=== PATIENT | male | born 1945 | race Caucasian/White ===

== ENCOUNTER 2022-03-13 10:08 | Inpatient (IN) ==
--- NOTE | 2022-03-13 10:58 | Emergency Department Note ---
HPI General Chief complaint: Weakness Stated complaint: General Weakness Time Seen by Provider: 03/13/22 10:13 Source: EMS Mode of arrival: EMS Limitations: no limitations History of Present Illness HPI Narrative: Narrative: Patient is a 76-year-old male with a complex medical history who presents to the emergency department due to generalized weakness. Patient's reports that the patient has had weakness for "a while." She is unsure exactly how long, but states that seems to be everywhere. She states that he has been in physical therapy for this reason. He then fell on 03/12/2022 and was evaluated at around 2 AM per patient's . She states that they did x-rays that looked good, so they were discharged, but they continue to be concerned. She states that they googled his symptoms and were concerned about the possibility of a TIA. Patient at this time denies any changes in vision/hearing/speech, numbness/tingling/weakness, or facial droop. Patient's does endorse frequent urination. She states that he has chronic runny nose and cough, but these seem to be slightly better at this time. She denies any other concerns at this time. Related Data Home Medications Medication Instructions Recorded Confirmed metoprolol succinate 50 mg 100 mg PO QPM 02/20/21 03/13/22 tablet,extended release 24 hr cyanocobalamin (vitamin B-12) 1,000 mcg IM Q2W 03/04/21 03/13/22 1,000 mcg/mL injection solution finasteride 5 mg tablet 5 mg PO QDAY 03/12/21 03/13/22 GO-out daily maintenance 1 tab PO QDAY PRN Pain 06/12/21 03/13/22 acetaminophen 500 mg capsule 500 mg PO Q6H PRN Pain 06/12/21 03/13/22 loperamide 2 mg capsule (Imodium 2 mg PO Q6H PRN Diarrhea 06/12/21 03/13/22 A-D) phenylephrine 5 See Rx Instructions .Route .COMPLEX 06/12/21 03/13/22 mg-dextromethorphan 10 mg-acetaminophen 325 mg capsule (Vicks DayQuil Cold and Flu Relief) tamsulosin 0.4 mg capsule 0.4 mg PO BID 06/12/21 03/13/22 valacyclovir 1 gram tablet 1,000 mg PO QDAY 06/12/21 03/04/22 ashpatdha root extract 1 cap PO DAILY 12/16/21 03/13/22 warfarin 3 mg tablet 3 mg PO .COMPLEX 01/30/22 03/13/22 insulin glargine 100 unit/mL (3 35 unit subcut QPM diabetic 03/13/22 03/13/22 mL) subcutaneous pen (Basaglar KwikPen U-100 Insulin) Previous Rx's Medication Instructions Recorded blood-glucose meter #1 ea 07/20/19 albuterol sulfate 90 mcg/actuation 2 puff inhalation Q6H PRN 02/23/20 aerosol inhaler (Ventolin HFA) shortness of breath or wheezing #8.5 grams blood sugar diagnostic (Blood #100 ea 04/23/20 Glucose Test strips) cholecalciferol (vitamin D3) 125 125 mcg PO QDAY #30 caps 03/14/21 mcg (5,000 unit) capsule lipase 3,000-protease 1 cap PO BID #60 caps 05/21/21 9,500-amylase 15,000 unit capsule, delayed rel (Creon) Lactobac no.2-Bifidobac no.1-S. 1 cap PO QDAY #30 caps 07/22/21 thermo 112.5 billion cell capsule (VSL#3) empagliflozin 10 mg tablet 10 mg PO QAM #90 tabs 09/05/21 (Jardiance) levothyroxine 125 mcg tablet 125 mcg PO QDAY #90 tabs 01/13/22 gabapentin 300 mg capsule 300 mg PO BID #180 caps 02/10/22 clonazepam 0.5 mg tablet 0.5 mg PO QDAY PRN anxiety #30 tabs 02/14/22 bupropion HCl 300 mg 24 hr tablet, 300 mg PO QAM #30 tabs 03/13/22 extended release (Wellbutrin XL) mirtazapine 30 mg tablet (Remeron) 30 mg PO QHS #30 tabs 03/13/22 ibuprofen 600 mg tablet 600 mg PO QIDP PRN Pain/Fever > 03/17/22 101 #30 tabs lidocaine 5 % topical patch 1 patch topical DAILY@1000 #10 ea 03/17/22 tramadol 50 mg tablet 50 mg PO QID #20 tabs 03/17/22 Allergies Allergy/AdvReac Type Severity Reaction Status Date / Time hydrocodone AdvReac Mild itching Verified 03/13/22 10:14 oxycodone AdvReac Mild Itching Verified 03/13/22 10:14 Review of Systems ROS ROS Narrative: Narrative: Constitutional: Reports weakness (Generalized); Denies fever Eyes: Denies eye pain or vision change ENT ED: Reports rhinorrhea; Denies throat pain or hearing loss Cardiovascular: Denies chest pain, dyspnea on exertion, orthopnea or edema Respiratory: Reports cough; Denies shortness of breath Gastrointestinal: Reports constipation; Denies abdominal pain, nausea, vomiting, diarrhea, hematochezia or melena Genitourinary: Reports frequency; Denies dysuria, hematuria or incontinence Musculoskeletal: Reports other (Left femur, ankle, and foot pain); Denies back pain or myalgia Integumentary: Denies rash or lesions Neurological: Reports weakness (Generalized); Denies headache, numbness, confusion, abnormal gait or dizziness Endocrine: Reports polyuria; Denies fatigue Hematological/Lymphatic: Denies easy bleeding or easy bruising PFSH Narrative Patient History Narrative: Narrative: Medical/Surgical/Family History All Active Problems (Updated 03/19/22 @ 07:03 by Wesley Melton MD) Hypocalcemia (Acute) General weakness (Acute) T2DM (type 2 diabetes mellitus) (Acute) Overweight (BMI 25.0-29.9) (Chronic) Diabetes mellitus type 2, uncontrolled (Chronic) Hypothyroidism, acquired (Chronic) Anxiety, generalized (Chronic) Depression, major, recurrent (Chronic) Chest pain (Chronic) A-fib (Chronic) Dyspnea (Chronic) Fatigue (Chronic) Benign prostatic hyperplasia with lower urinary tract symptoms (Chronic) Graves disease (Chronic) Polio (Chronic) Irregular heart rhythm (Chronic) Chronic kidney disease (Chronic) Irritable bowel syndrome (Chronic) COLEEN (obstructive sleep apnea) (Chronic) Uses continuous positive airway pressure (CPAP) ventilation at home (Chronic) Flu vaccine need (Chronic) Urinary frequency (Chronic) Urinary urgency (Chronic) Hernia (Chronic) Palpitations (Chronic) Back pain (Chronic) Skin tear (Chronic) Laceration (Chronic) Open wound (Chronic) Ventral hernia without obstruction or gangrene (Chronic) Medicare annual wellness visit, initial (Chronic) Arthritis of left wrist (Chronic) Spinal stenosis, lumbar region with neurogenic claudication (Chronic) Bilateral leg pain (Chronic) History of cataract extraction (Chronic) Weakness (Chronic) Blurred vision (Chronic) Nasal discharge (Chronic) Ringing in ear (Chronic) Joint pain (Chronic) Muscle weakness (Chronic) Muscle pain (Chronic) Dry skin (Chronic) Itchy skin (Chronic) Mood changes (Chronic) Thyroid trouble (Chronic) Reaction to food (Chronic) Gout (Chronic) Skin yeast infection (Chronic) Obesity (Chronic) Metabolic syndrome (Chronic) Hypothyroidism (Chronic) GERD (gastroesophageal reflux disease) (Chronic) Depression (Chronic) Radiculopathy, lumbar region (Chronic) Shingles outbreak (Chronic) Yeast infection of the skin (Chronic) Long-term (current) use of anticoagulants (Chronic) Gout (Chronic) Diarrhea (Chronic) Skin tear (Chronic) Skin tear of left hand without complication (Chronic) Concussion (Chronic) Cellulitis (Chronic) Bilateral knee pain (Chronic) TMJ (temporomandibular joint disorder) (Chronic) Foot pain, right (Chronic) Suicidal ideation (Chronic) Depression (Chronic) Hospital discharge follow-up (Chronic) Hyperglycemia (Chronic) On waiter and cashier drug therapy (Chronic) Vitamin D deficiency (Chronic) Major depression in partial remission (Chronic) Diabetes mellitus (Chronic) Major depression, recurrent, chronic (Chronic) Generalized anxiety disorder (Chronic) Atrial fibrillation (Chronic) Suicidal ideation (Chronic) Diabetic neuropathy (Chronic) Insomnia (Chronic) Irritable bowel syndrome (Chronic) Abdominal mass (Chronic) Abdominal pain (Chronic) UTI (urinary tract infection) (Chronic) BPH (benign prostatic hyperplasia) (Chronic) Other chronic cystitis without hematuria (Chronic) Thyrotoxicosis (Chronic) Unspecified abnormalities of heart beat (Chronic) Osteoarthritis (Chronic) Left renal stone (Chronic) Chronic renal insufficiency, stage III (moderate) (Chronic) CKD stage G3a/A2, GFR 45-59 and albumin creatinine ratio 30-299 mg/g (Acute) Head injury (Acute) Vitamin B12 deficiency without anemia (Acute) Cellulitis of left foot (Acute) Low back pain (Acute) Low libido (Acute) On chcf drug therapy (Acute) Diabetes mellitus (Acute) Low libido (Acute) Hypothyroidism (Acute) Head injury (Acute) Blood in stool (Acute) TIN (tubulointerstitial nephritis) (Acute) Foreign body sensation in throat (Acute) Esophageal dysmotility (Acute) Difficulty swallowing (Acute) Bradycardia (Acute) Bradycardia (Acute) Cough (Acute) Bilateral leg weakness (Acute) CAP (community acquired pneumonia) (Acute) Fall (Acute) Knee pain, bilateral (Acute) Lower back pain (Acute) Falls frequently (Acute) DJD (degenerative joint disease) (Acute) Chondrocalcinosis (Acute) DJD (degenerative joint disease), lumbar (Acute) Chronic knee pain (Acute) Medical History A-fib Anxiety, generalized Arthritis of wrist, left, degenerative Back pain Benign prostatic hyperplasia with lower urinary tract symptoms Bilateral knee pain Bilateral leg pain Bilateral leg weakness Blood in stool Blurred vision BPH (benign prostatic hyperplasia) Bradycardia CAP (community acquired pneumonia) Cellulitis Chronic kidney disease Chronic renal insufficiency, stage III (moderate) Depression Depression Depression, major, recurrent Diabetes mellitus type 2, uncontrolled Diabetic neuropathy Diarrhea Difficulty swallowing Dry skin Dyspnea Fatigue Foot pain, right GERD (gastroesophageal reflux disease) Gout Gout Graves disease 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, eyes and legs Hernia Hospital discharge follow-up Hypothyroidism Hypothyroidism, acquired Irregular heart rhythm Irritable bowel syndrome Itchy skin Joint pain Left renal stone Low back pain Metabolic syndrome Mood changes Muscle pain Muscle weakness Nasal discharge Obesity COLEEN (obstructive sleep apnea) Osteoarthritis Other chronic cystitis without hematuria Overweight (BMI 25.0-29.9) Palpitations Polio Radiculopathy, lumbar region Reaction to food Ringing in ear Shingles outbreak Sleep disorder Spinal stenosis, lumbar region with neurogenic claudication Suicidal ideation Thyroid trouble Thyrotoxicosis TMJ (temporomandibular joint disorder) Unspecified abnormalities of heart beat Urinary frequency Urinary urgency Uses continuous positive airway pressure (CPAP) ventilation at home UTI (urinary tract infection) Ventral hernia without obstruction or gangrene Weakness Yeast infection of the skin Surgical History History of Achilles tendon repair Left foot History of cataract extraction History of colonoscopy History of left inguinal hernia repair History of left knee replacement History of partial colectomy ~2000 History of surgery on wrist Left History of thumb surgery Left History of total right knee replacement (TKR) Family History Grandmother Breast cancer Maternal Father Alcoholism Mother Colon cancer Stage 3 Alcoholism Diabetes Daughter Hypothyroidism Sleep apnea Son Sleep apnea Diabetes Hypothyroidism Family/Other Family history of anxiety disorder Family history of depression Family history of drug abuse Social History Smoking Status: Never smoker Alcohol Intake Frequency: a few times a week Substance Use: does not use Exam Narrative Narrative: Narrative: General Limitations: no limitations General appearance: Present alert and in no apparent distress; Absent anxious, appears intoxicated or sleepy Head Head: Present atraumatic and normocephalic Eye Eye: Present PERRL and EOMI; Absent scleral icterus or nystagmus ENT ENT: Present mucous membranes moist; Absent nasal congestion Neck Neck: Present full ROM; Absent tenderness Chest Chest: Present normal inspection and symmetric chest wall rise; Absent tenderness Respiratory Respiratory: Present normal lung sounds bilaterally; Absent respiratory distress or accessory muscle use Cardiovascular Cardiovascular: Present regular rate, normal rhythm and normal heart sounds Adbominal Abdominal: Present soft and normal bowel sounds; Absent distention or tenderness Extremities Extremities: Present normal inspection, full ROM and tenderness (Left femur, ankle, and foot) Back Back: Present normal inspection and full ROM; Absent tenderness Neurological Neurological: Present alert, oriented X3, CN II-XII intact and reflexes normal; Absent motor sensory deficit Psychiatric Psychiatric: Present normal affect and normal mood Skin Skin: Present warm (WNL), dry and normal color Course Vital Signs Vital signs: Vital Signs Temperature 97.0 F 03/13/22 10:15 Pulse Rate 85 03/13/22 10:15 Respiratory Rate 20 03/13/22 10:15 Blood Pressure 151/83 03/13/22 10:15 Pulse Oximetry (%) 97 03/13/22 10:15 Oxygen Delivery Method 03/13/22 10:15 Temperature 98.8 F 03/17/22 13:10 Pulse Rate 85 03/17/22 13:10 Respiratory Rate 20 03/17/22 13:10 Blood Pressure 137/72 03/17/22 13:10 Pulse Oximetry (%) 95 03/17/22 13:10 Oxygen Delivery Method 03/17/22 13:10 [facility] MDM Narrative Medical decision making narrative: Narrative: Patient is a 76-year-old male who presents to the emergency department due to generalized weakness. Differential diagnoses include UTI, electrolyte abnormality, anemia, viral infection, hypoglycemia, and other infection. I Patient's COVID and influenza swabs are negative. Patient's labs are significant for a ionized calcium of 0.75 and urine with blood and protein. Given patient's symptoms, very low calcium, and family concerning spoken to hospitalist was agreed to see and evaluate patient for admission. Lab Data Result diagrams: 03/14/22 06:00 03/16/22 05:18 Labs: Lab Results 03/13/22 03/13/22 03/13/22 Range/Units 11:05 11:05 11:05 WBC 9.0 (4.5-11.0) K/mcL RBC 5.74 (4.63-6.08) M/mcL Hgb 17.5 (13.7-17.5) g/dL Hct 53.6 H (40.1-51.0) % POC Hct (41-55) MCV 93.4 (80.0-100.0) fL MCH 30.5 (26.0-34.0) pg MCHC 32.6 (31.0-36.0) g/dL RDW 12.9 (11.5-14.5) % Plt Count 138 L (140-440) K/mcL MPV 9.1 (8.8-12.5) fL Immature Gran % (Auto) 0.3 (0.0-0.5) % Neut % (Auto) 72.3 (38.0-78.0) % Lymph % (Auto) 12.2 L (15.5-49.0) % Catron % (Auto) 14.1 H (1.0-12.0) % Eos % (Auto) 0.9 (0.0-7.0) % Baso % (Auto) 0.2 (0.0-2.0) % Lymph # (Auto) 1.09 L (1.50-4.80) K/mcL [place] # (Auto) 1.26 H (0.10-0.90) K/mcL Eos # (Auto) 0.08 (0.00-0.70) K/mcL Baso # (Auto) 0.02 (0.00-0.30) K/mcL Immature Gran # 0.03 (0.00-0.05) K/mcl Absolute Neutrophils 6.48 (1.80-8.00) K/mcL PT (11.9-14.5) sec INR (0.9-1.1) POC Sodium (133-145) Sodium (133-145) mmol/L POC Potassium (3.3-5.1) Potassium (3.3-5.1) mmol/L POC Chloride (96-108) Chloride (96-108) mmol/L Carbon Dioxide (22-30) mmol/L POC Total CO2 (22-30) Anion Gap (8.0-16.0) POC BUN (6-20) BUN (8-23) mg/dL Creatinine (0.7-1.2) mg/dL POC Creatinine (0.6-1.2) GFR Calculation Glucose (70-105) mg/dL POC Glucose (70-105) Hemoglobin A1c (4.0-6.0) % Hgb Estim Average Glucose mg/dL Calcium (8.6-10.4) mg/dL POC WB Ioniz Calcium (1.16-1.32) Magnesium 1.7 (1.6-2.5) mg/dL Total Bilirubin 1.3 H (0.1-1.0) mg/dL Direct Bilirubin 0.5 H (<0.3) mg/dL AST 24 (<40) U/L ALT 18 (<40) U/L Alkaline Phosphatase 79 (39-117) U/L Total Protein 7.5 (5.9-8.4) gm/dL Albumin 4.1 (3.2-5.2) gm/dL Globulin 3.4 (2.2-3.7) gm/dL Albumin/Globulin Ratio (1.0-2.3) Urine Color Urine Appearance (Clear) Urine pH (5.0-9.0) Ur Specific [place] (1.000-1.035) Urine Protein (Negative) mg/dL Urine Glucose (UA) (Negative) mg/dL Urine Ketones (Negative) mg/dL Urine Occult Blood (Negative) mg/dL Urine Nitrate (Negative) Urine Bilirubin (Negative) mg/dL Urine Urobilinogen mg/dL Ur Leukocyte Esterase (Negative) /uL Urine RBC (0-1) /hpf Urine WBC (0-4) /hpf Ur Squamous Epith Cells (0-4) /hpf Urine Bacteria (0) /hpf Ur Culture Indicated? 03/13/22 03/13/22 03/13/22 Range/Units 11:05 11:05 11:13 WBC (4.5-11.0) K/mcL RBC (4.63-6.08) M/mcL Hgb (13.7-17.5) g/dL Hct (40.1-51.0) % POC Hct 54.0 (41-55) MCV (80.0-100.0) fL MCH (26.0-34.0) pg MCHC (31.0-36.0) g/dL RDW (11.5-14.5) % Plt Count (140-440) K/mcL MPV (8.8-12.5) fL Immature Gran % (Auto) (0.0-0.5) % Neut % (Auto) (38.0-78.0) % Lymph % (Auto) (15.5-49.0) % Catron % (Auto) (1.0-12.0) % Eos % (Auto) (0.0-7.0) % Baso % (Auto) (0.0-2.0) % Lymph # (Auto) (1.50-4.80) K/mcL Catron # (Auto) (0.10-0.90) K/mcL Eos # (Auto) (0.00-0.70) K/mcL Baso # (Auto) (0.00-0.30) K/mcL Immature Gran # (0.00-0.05) K/mcl Absolute Neutrophils (1.80-8.00) K/mcL PT (11.9-14.5) sec INR (0.9-1.1) POC Sodium 139 (133-145) Sodium (133-145) mmol/L POC Potassium 4.4 (3.3-5.1) Potassium (3.3-5.1) mmol/L POC Chloride 103 (96-108) Chloride (96-108) mmol/L Carbon Dioxide (22-30) mmol/L POC Total CO2 29.0 (22-30) Anion Gap (8.0-16.0) POC BUN 24 H (6-20) BUN (8-23) mg/dL Creatinine (0.7-1.2) mg/dL POC Creatinine 1.5 H (0.6-1.2) GFR Calculation Glucose (70-105) mg/dL POC Glucose 135 H (70-105) Hemoglobin A1c 8.4 H (4.0-6.0) % Hgb Estim Average Glucose 194 mg/dL Calcium 10.0 (8.6-10.4) mg/dL POC WB Ioniz Calcium 0.75 L (1.16-1.32) Magnesium (1.6-2.5) mg/dL Total Bilirubin (0.1-1.0) mg/dL Direct Bilirubin (<0.3) mg/dL AST (<40) U/L ALT (<40) U/L Alkaline Phosphatase (39-117) U/L Total Protein (5.9-8.4) gm/dL Albumin (3.2-5.2) gm/dL Globulin (2.2-3.7) gm/dL Albumin/Globulin Ratio (1.0-2.3) Urine Color Urine Appearance (Clear) Urine pH (5.0-9.0) Ur Specific [place] (1.000-1.035) Urine Protein (Negative) mg/dL Urine Glucose (UA) (Negative) mg/dL Urine Ketones (Negative) mg/dL Urine Occult Blood (Negative) mg/dL Urine Nitrate (Negative) Urine Bilirubin (Negative) mg/dL Urine Urobilinogen mg/dL Ur Leukocyte Esterase (Negative) /uL Urine RBC (0-1) /hpf Urine WBC (0-4) /hpf Ur Squamous Epith Cells (0-4) /hpf Urine Bacteria (0) /hpf Ur Culture Indicated? 03/13/22 03/14/22 03/14/22 Range/Units 13:45 06:00 06:00 WBC 9.5 (4.5-11.0) K/mcL RBC 5.03 (4.63-6.08) M/mcL Hgb 15.6 (13.7-17.5) g/dL Hct 46.8 (40.1-51.0) % POC Hct (41-55) MCV 93.0 (80.0-100.0) fL MCH 31.0 (26.0-34.0) pg MCHC 33.3 (31.0-36.0) g/dL RDW 12.7 (11.5-14.5) % Plt Count 135 L (140-440) K/mcL MPV 9.9 (8.8-12.5) fL Immature Gran % (Auto) 0.3 (0.0-0.5) % Neut % (Auto) 67.2 (38.0-78.0) % Lymph % (Auto) 14.9 L (15.5-49.0) % Catron % (Auto) 16.5 H (1.0-12.0) % Eos % (Auto) 0.8 (0.0-7.0) % Baso % (Auto) 0.3 (0.0-2.0) % Lymph # (Auto) 1.42 L (1.50-4.80) K/mcL Catron # (Auto) 1.57 H (0.10-0.90) K/mcL Eos # (Auto) 0.08 (0.00-0.70) K/mcL Baso # (Auto) 0.03 (0.00-0.30) K/mcL Immature Gran # 0.03 (0.00-0.05) K/mcl Absolute Neutrophils 6.39 (1.80-8.00) K/mcL PT 20.8 H (11.9-14.5) sec INR 1.7 H (0.9-1.1) POC Sodium (133-145) Sodium (133-145) mmol/L POC Potassium (3.3-5.1) Potassium (3.3-5.1) mmol/L POC Chloride (96-108) Chloride (96-108) mmol/L Carbon Dioxide (22-30) mmol/L POC Total CO2 (22-30) Anion Gap (8.0-16.0) POC BUN (6-20) BUN (8-23) mg/dL Creatinine (0.7-1.2) mg/dL POC Creatinine (0.6-1.2) GFR Calculation Glucose (70-105) mg/dL POC Glucose (70-105) Hemoglobin A1c (4.0-6.0) % Hgb Estim Average Glucose mg/dL Calcium (8.6-10.4) mg/dL POC WB Ioniz Calcium (1.16-1.32) Magnesium (1.6-2.5) mg/dL Total Bilirubin (0.1-1.0) mg/dL Direct Bilirubin (<0.3) mg/dL AST (<40) U/L ALT (<40) U/L Alkaline Phosphatase (39-117) U/L Total Protein (5.9-8.4) gm/dL Albumin (3.2-5.2) gm/dL Globulin (2.2-3.7) gm/dL Albumin/Globulin Ratio (1.0-2.3) Urine Color Yellow Urine Appearance Clear (Clear) Urine pH 5.0 (5.0-9.0) Ur Specific [place] 1.025 (1.000-1.035) Urine Protein 100 A (Negative) mg/dL Urine Glucose (UA) >=500 A (Negative) mg/dL Urine Ketones 20 A (Negative) mg/dL Urine Occult Blood >=1.0 A (Negative) mg/dL Urine Nitrate Negative (Negative) Urine Bilirubin Negative (Negative) mg/dL Urine Urobilinogen Negative mg/dL Ur Leukocyte Esterase Negative (Negative) /uL Urine RBC > 182 H (0-1) /hpf Urine WBC 4 (0-4) /hpf Ur Squamous Epith Cells < 1 (0-4) /hpf Urine Bacteria None (0) /hpf Ur Culture Indicated? No 03/14/22 Range/Units 06:00 WBC (4.5-11.0) K/mcL RBC (4.63-6.08) M/mcL Hgb (13.7-17.5) g/dL Hct (40.1-51.0) % POC Hct (41-55) MCV (80.0-100.0) fL MCH (26.0-34.0) pg MCHC (31.0-36.0) g/dL RDW (11.5-14.5) % Plt Count (140-440) K/mcL MPV (8.8-12.5) fL Immature Gran % (Auto) (0.0-0.5) % Neut % (Auto) (38.0-78.0) % Lymph % (Auto) (15.5-49.0) % Catron % (Auto) (1.0-12.0) % Eos % (Auto) (0.0-7.0) % Baso % (Auto) (0.0-2.0) % Lymph # (Auto) (1.50-4.80) K/mcL [place] # (Auto) (0.10-0.90) K/mcL Eos # (Auto) (0.00-0.70) K/mcL Baso # (Auto) (0.00-0.30) K/mcL Immature Gran # (0.00-0.05) K/mcl Absolute Neutrophils (1.80-8.00) K/mcL PT (11.9-14.5) sec INR (0.9-1.1) POC Sodium (133-145) Sodium 133 (133-145) mmol/L POC Potassium (3.3-5.1) Potassium 3.9 (3.3-5.1) mmol/L POC Chloride (96-108) Chloride 100 (96-108) mmol/L Carbon Dioxide 23 (22-30) mmol/L POC Total CO2 (22-30) Anion Gap 10.0 (8.0-16.0) POC BUN (6-20) BUN 22 (8-23) mg/dL Creatinine 1.4 H (0.7-1.2) mg/dL POC Creatinine (0.6-1.2) GFR Calculation 48 Glucose 186 H (70-105) mg/dL POC Glucose (70-105) Hemoglobin A1c (4.0-6.0) % Hgb Estim Average Glucose mg/dL Calcium 9.0 (8.6-10.4) mg/dL POC WB Ioniz Calcium (1.16-1.32) Magnesium (1.6-2.5) mg/dL Total Bilirubin 1.2 H (0.1-1.0) mg/dL Direct Bilirubin (<0.3) mg/dL AST 32 (<40) U/L ALT 20 (<40) U/L Alkaline Phosphatase 79 (39-117) U/L Total Protein 6.3 (5.9-8.4) gm/dL Albumin 3.3 (3.2-5.2) gm/dL Globulin 3.0 (2.2-3.7) gm/dL Albumin/Globulin Ratio 1.1 (1.0-2.3) Urine Color Urine Appearance (Clear) Urine pH (5.0-9.0) Ur Specific [place] (1.000-1.035) Urine Protein (Negative) mg/dL Urine Glucose (UA) (Negative) mg/dL Urine Ketones (Negative) mg/dL Urine Occult Blood (Negative) mg/dL Urine Nitrate (Negative) Urine Bilirubin (Negative) mg/dL Urine Urobilinogen mg/dL Ur Leukocyte Esterase (Negative) /uL Urine RBC (0-1) /hpf Urine WBC (0-4) /hpf Ur Squamous Epith Cells (0-4) /hpf Urine Bacteria (0) /hpf Ur Culture Indicated? ED POC Tests ED POC Tests: JOYCE - Influenza A Negative JOYCE - Influenza B Negative JOYCE - SARS Antigen Negative EKG Data EKG #1: EKG attestation: Yes I reviewed and interpreted this EKG. EKG results narrative: Normal sinus rhythm with a rate of 93, left axis deviation, UT of 238, QRS of 140, QTc of 471, absence of ST elevation or depression, right bundle branch block pattern. Discharge Plan Patient/Caregiver Discharge Instructions Pt seen by SCULPTURE INSTRUCTOR/PA only: No Clinical Impression: Hypocalcemia Patient Disposition: Xfer As Inpt ([facility]) Discharge Date/Time: 03/13/22 20:08 Discharge Comment: to room 112 @2005
[2022-03-13 11:17] LABS: POC Calcium, Ionized 0.75 (1.16-1.32); POC Creatinine 1.5 (0.6-1.2); POC Potassium 4.4 (3.3-5.1)
[2022-03-13] MEDS ORDERED: CALCIUM GLUCONATE 4.65 MEQ in DEXTROSE 5% IN WATER 50 ML IV ONE (11:20)
[2022-03-13 11:49] LABS: Basophils # (Auto) 0.02 K/mcL (0.00-0.30); Basophils % (Auto) 0.2 % (0.0-2.0); Eosinophils # (Auto) 0.08 K/mcL (0.00-0.70); Eosinophils % (Auto) 0.9 % (0.0-7.0); Hematocrit 53.6 % (40.1-51.0); Hemoglobin 17.5 g/dL (13.7-17.5); Lymphocytes # (Auto) 1.09 K/mcL (1.50-4.80); Lymphocytes % (Auto) 12.2 % (15.5-49.0); Mean Cell Volume 93.4 fL (80.0-100.0); Mean Corpuscular HGB Conc 32.6 g/dL (31.0-36.0); Mean Platelet Volume 9.1 fL (8.8-12.5); Monocytes # (Auto) 1.26 K/mcL (0.10-0.90); Monocytes % (Auto) 14.1 % (1.0-12.0); Neutrophils % (Auto) 72.3 % (38.0-78.0); Platelet Count 138 K/mcL (140-440); RBC 5.74 M/mcL (4.63-6.08); Red Cell Distribution Width 12.9 % (11.5-14.5)
--- NOTE | 2022-03-13 12:08 | XRay Report ---
INDICATION: cough TECHNIQUE: AP portable upright chest x-ray COMPARISON: Previous chest x-rays dated 03/03/2022, 12/11/2021 FINDINGS: Lungs:Mild bibasilar infiltrate may be secondary to atelectasis. Pneumonia is not excluded. Clinical correlation follow-up radiographs recommended. Mid and upper lungs are negative Heart, vascular:No significant cardiomegaly. Pulmonary vascularity is normal. No pulmonary edema or pulmonary congestion Mediastinum, chucho:No mediastinal widening. No hilar mass Pleura:No pleural fluid. No pleural-based mass or calcification Skeletal:Negative. IMPRESSION: 1. Probable bibasilar atelectasis. Pneumonia is not excluded 2. Otherwise negative Interpreted and Authenticated by: Mejia Savage 03/13/22
--- NOTE | 2022-03-13 12:09 | XRay Report ---
INDICATION: Fall, foot/ankle pain/tenderness TECHNIQUE: AP, oblique, crosstable lateral left ankle COMPARISON: None FINDINGS: Skeletal: Distal tibia and fibula are negative. No fracture. Talus and calcaneus are normal. No osteochondral lesion of the talus Joint spaces: Tibiotalar joint space is normal. Subtalar joint is normalNo significant tibiotalar joint effusion Periarticular soft tissue: No significant periarticular soft tissue swelling. No soft tissue gas or radiopaque foreign body. There is vascular calcification consistent with diabetes IMPRESSION: No acute abnormality Interpreted and Authenticated by: Mejia Savage 03/13/22
--- NOTE | 2022-03-13 12:10 | XRay Report ---
INDICATION: Pain/tenderness, recent fall TECHNIQUE: AP and crosstable lateral left femur COMPARISON: None. FINDINGS: Previous left total hip arthroplasty. No periprosthetic fracture. Left femur is otherwise negative. Left hip is normal. No soft tissue gas or detectable foreign body IMPRESSION: No acute abnormality Interpreted and Authenticated by: Mejia Savage 03/13/22
--- NOTE | 2022-03-13 12:13 | XRay Report ---
INDICATION: Fall, foot/ankle pain/tenderness TECHNIQUE: AP, oblique, lateral left foot COMPARISON: Previous examination dated 07/16/2021 FINDINGS: There is a subtle linear lucency in the distal aspects of the left first proximal phalanx. This is not considered a definite fracture. This is visualized on AP view although the oblique view is negative Otherwise negative examination. No other fracture or acute abnormality. No soft tissue gas. No detectable foreign body. There are vascular calcifications suggesting diabetes IMPRESSION: No definite acute abnormality Interpreted and Authenticated by: Mejia Savage 03/13/22
[2022-03-13 12:31] LABS: ALT/SGPT 18 U/L (<40); AST/SGOT 24 U/L (<40); Albumin 4.1 gm/dL (3.2-5.2); Alkaline Phosphatase 79 U/L (39-117); Bilirubin,Direct 0.5 mg/dL (<0.3); Bilirubin,Total 1.3 mg/dL (0.1-1.0); Globulin 3.4 gm/dL (2.2-3.7)
[2022-03-13] MEDS ORDERED: 0.9 % SODIUM CHLORIDE 500 ML IV ONE (12:47)
[2022-03-13 15:22] LABS: Appearance,Urine CLEAR (Clear); Bilirubin,Urine Negative (Negative); Color,Urine YELLOW; Culture Indicated,Urine No; Glucose,Urine (UA) >=500 mg/dL (Negative); Ketones,Urine 20 mg/dL (Negative); Leukocyte Esterase,Urine Negative /uL (Negative); Nitrate,Urine Negative (Negative); Protein,Urine 100 mg/dL (Negative); Specific Gravity,Urine 1.025 (1.000-1.035); Urine Blood >=1.0 mg/dL (Negative); Urine RBC > 182 /hpf (0-1); Urine Squamous Epithelial Cell < 1 /hpf (0-4); Urine WBC 4 /hpf (0-4); Urobilinogen,Urine Negative
[2022-03-13] MEDS ORDERED: ceFAZolin 1 GM VIAL IV ONE (16:16)
[2022-03-13] MEDS ORDERED: VANCOMYCIN 2,000 MG in 0.9 % SODIUM CHLORIDE 500 ML IV ONE (16:16)
--- NOTE | 2022-03-13 16:27 | Cat Scan Report ---
INDICATION: AMS COMPARISON: Previous examinations dated 03/03/2022, 08/25/2021, 06/14/2021 TECHNIQUE: Axial noncontrast-enhanced images through the brain. Sagittally and coronally reformatted images. FINDINGS: Cerebral hemispheres:Negative. No intra-axial abnormality. No intra-axial hematoma. No localized mass effect. There is ventriculomegaly, unchanged. No evidence for significant interstitial edema. Normal pressure hydrocephalus is not excluded appropriate clinical circumstances Brainstem and cerebellum:No intra-axial abnormality. There is hypoplasia of the left cerebellar hemisphere or asymmetric roseann cisterna magna Extra-axial:No acute hemorrhage. No subdural or epidural hematoma. No subarachnoid hemorrhage. Basilar cisterns are normal Calvarial:No calvarial fracture. No lytic lesion Temporal bones are negative. No destructive lesions Soft tissue, orbits, sinuses:Orbits and visualized facial soft tissues and paranasal sinuses are negative IMPRESSION: 1. No acute abnormality. No interval change. No intracranial hemorrhage 2. Ventriculomegaly is stable 3. 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 Interpreted and Authenticated by: Mejia Savage 03/13/22
--- NOTE | 2022-03-13 18:18 | Internal Med History&Physical ---
HPI History of Present Illness Patient information: Note initiated : 03/13/22 at 6:15 pm Service Date, if different from initiated Date: [] Patient: Bryan Hanson a 76 y/o M admitted on for General Weakness. Chief Complaint: [General weakness, left knee pain, unable to walk] Chief complaint: General weakness, left knee pain, unable to walk History of present illness: Mr. Hanson is a 76 year old M history of hypothyroidism, BPH, type 2 diabetes mellitus, anxiety with depressions, atrial fibrillation's, generalized osteoarthritis status post left hip and knee replacement, presenting with 4-day history of left knee pain, inability to walk, and general weakness. According to the and daughter at the bedside, at baseline patient was able to walk as much as he would want to but since last Thursday he was not able to walk and essentially bedridden. He is also complaining of left knee and left ankle pain. Extensive x-ray including the entire left lower extremities were performed and no acute joint abnormalities suggest joint dislocations or bone fractures were identified. Chest x-ray unremarkable. CT of the head without contrast also unremarkable and this was no acute intracranial pathologies identified. Ionized calcium level 0.75, but the total calcium level 10.0 within normal range. Admission request was called for placement planning after physical therapy and Occupational Therapy evaluations. Constitutional Constitutional: Present weakness; Absent chills, excessive sweating, fatigue or fever(s) EENT Eyes: Absent blurry vision, change in vision, loss of vision or other visual disturbances Ears: Absent decreased hearing or tinnitus Nose, mouth and throat: Absent abnormal hearing, dry mouth, headache(s), nasal congestion or sore throat Cardiovascular Cardiovascular: Absent chest pain, chest pain at rest, edema, irregular heart rhythm or palpatations Respiratory Respiratory: Absent cough, dyspnea or wheezing Gastrointestinal Gastrointestinal: Absent abdominal pain, constipation, diarrhea, nausea or vomiting Musculoskeletal Musculoskeletal: Present arthralgias; Absent back pain, deformity, limited range of motion, muscle cramps, muscle weakness or numbness Integumentary Integumentary: Absent lesions, rash or wounds Neurological Neurological: Absent focal weakness, headache(s) or numbness Psychiatric Psychiatric: Absent anxiety, depression or hallucinations PFSH PFSH All Active Problems (Updated 03/13/22 @ 18:26 by Chet Jaquez MD) General weakness (Acute) T2DM (type 2 diabetes mellitus) (Acute) Overweight (BMI 25.0-29.9) (Chronic) Diabetes mellitus type 2, uncontrolled (Chronic) Hypothyroidism, acquired (Chronic) Anxiety, generalized (Chronic) Depression, major, recurrent (Chronic) Chest pain (Chronic) A-fib (Chronic) Dyspnea (Chronic) Fatigue (Chronic) Benign prostatic hyperplasia with lower urinary tract symptoms (Chronic) Graves disease (Chronic) Polio (Chronic) Irregular heart rhythm (Chronic) Chronic kidney disease (Chronic) Irritable bowel syndrome (Chronic) COLEEN (obstructive sleep apnea) (Chronic) Uses continuous positive airway pressure (CPAP) ventilation at home (Chronic) Flu vaccine need (Chronic) Urinary frequency (Chronic) Urinary urgency (Chronic) Hernia (Chronic) Palpitations (Chronic) Back pain (Chronic) Skin tear (Chronic) Laceration (Chronic) Open wound (Chronic) Ventral hernia without obstruction or gangrene (Chronic) Medicare annual wellness visit, initial (Chronic) Arthritis of left wrist (Chronic) Spinal stenosis, lumbar region with neurogenic claudication (Chronic) Bilateral leg pain (Chronic) History of cataract extraction (Chronic) Weakness (Chronic) Blurred vision (Chronic) Nasal discharge (Chronic) Ringing in ear (Chronic) Joint pain (Chronic) Muscle weakness (Chronic) Muscle pain (Chronic) Dry skin (Chronic) Itchy skin (Chronic) Mood changes (Chronic) Thyroid trouble (Chronic) Reaction to food (Chronic) Gout (Chronic) Skin yeast infection (Chronic) Obesity (Chronic) Metabolic syndrome (Chronic) Hypothyroidism (Chronic) GERD (gastroesophageal reflux disease) (Chronic) Depression (Chronic) Radiculopathy, lumbar region (Chronic) Shingles outbreak (Chronic) Yeast infection of the skin (Chronic) Long-term (current) use of anticoagulants (Chronic) Gout (Chronic) Diarrhea (Chronic) Skin tear (Chronic) Skin tear of left hand without complication (Chronic) Concussion (Chronic) Cellulitis (Chronic) Bilateral knee pain (Chronic) TMJ (temporomandibular joint disorder) (Chronic) Foot pain, right (Chronic) Suicidal ideation (Chronic) Depression (Chronic) Hospital discharge follow-up (Chronic) Hyperglycemia (Chronic) On terminal block assembler drug therapy (Chronic) Vitamin D deficiency (Chronic) Major depression in partial remission (Chronic) Diabetes mellitus (Chronic) Major depression, recurrent, chronic (Chronic) Generalized anxiety disorder (Chronic) Atrial fibrillation (Chronic) Suicidal ideation (Chronic) Diabetic neuropathy (Chronic) Insomnia (Chronic) Irritable bowel syndrome (Chronic) Abdominal mass (Chronic) Abdominal pain (Chronic) UTI (urinary tract infection) (Chronic) BPH (benign prostatic hyperplasia) (Chronic) Other chronic cystitis without hematuria (Chronic) Thyrotoxicosis (Chronic) Unspecified abnormalities of heart beat (Chronic) Osteoarthritis (Chronic) Left renal stone (Chronic) Chronic renal insufficiency, stage III (moderate) (Chronic) CKD stage G3a/A2, GFR 45-59 and albumin creatinine ratio 30-299 mg/g (Acute) Head injury (Acute) Vitamin B12 deficiency without anemia (Acute) Cellulitis of left foot (Acute) Low back pain (Acute) Low libido (Acute) On terminal block assembler drug therapy (Acute) Diabetes mellitus (Acute) Low libido (Acute) Hypothyroidism (Acute) Head injury (Acute) Blood in stool (Acute) TIN (tubulointerstitial nephritis) (Acute) Foreign body sensation in throat (Acute) Esophageal dysmotility (Acute) Difficulty swallowing (Acute) Bradycardia (Acute) Bradycardia (Acute) Cough (Acute) Bilateral leg weakness (Acute) CAP (community acquired pneumonia) (Acute) Fall (Acute) Knee pain, bilateral (Acute) Lower back pain (Acute) Falls frequently (Acute) DJD (degenerative joint disease) (Acute) Chondrocalcinosis (Acute) DJD (degenerative joint disease), lumbar (Acute) Chronic knee pain (Acute) Medical History A-fib Anxiety, generalized Arthritis of wrist, left, degenerative Back pain Benign prostatic hyperplasia with lower urinary tract symptoms Bilateral knee pain Bilateral leg pain Bilateral leg weakness Blood in stool Blurred vision BPH (benign prostatic hyperplasia) Bradycardia CAP (community acquired pneumonia) Cellulitis Chronic kidney disease Chronic renal insufficiency, stage III (moderate) Depression Depression Depression, major, recurrent Diabetes mellitus type 2, uncontrolled Diabetic neuropathy Diarrhea Difficulty swallowing Dry skin Dyspnea Fatigue Foot pain, right GERD (gastroesophageal reflux disease) Gout Gout Graves disease 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, eyes and legs Hernia Hospital discharge follow-up Hypothyroidism Hypothyroidism, acquired Irregular heart rhythm Irritable bowel syndrome Itchy skin Joint pain Left renal stone Low back pain Metabolic syndrome Mood changes Muscle pain Muscle weakness Nasal discharge Obesity COLEEN (obstructive sleep apnea) Osteoarthritis Other chronic cystitis without hematuria Overweight (BMI 25.0-29.9) Palpitations Polio Radiculopathy, lumbar region Reaction to food Ringing in ear Shingles outbreak Sleep disorder Spinal stenosis, lumbar region with neurogenic claudication Suicidal ideation Thyroid trouble Thyrotoxicosis TMJ (temporomandibular joint disorder) Unspecified abnormalities of heart beat Urinary frequency Urinary urgency Uses continuous positive airway pressure (CPAP) ventilation at home UTI (urinary tract infection) Ventral hernia without obstruction or gangrene Weakness Yeast infection of the skin Surgical History History of Achilles tendon repair Left foot History of cataract extraction History of colonoscopy History of left inguinal hernia repair History of left knee replacement History of partial colectomy ~2000 History of surgery on wrist Left History of thumb surgery Left History of total right knee replacement (TKR) Family History Grandmother Breast cancer Maternal Father Alcoholism Mother Colon cancer Stage 3 Alcoholism Diabetes Daughter Hypothyroidism Sleep apnea Son Sleep apnea Diabetes Hypothyroidism Family/Other Family history of anxiety disorder Family history of depression Family history of drug abuse Social History household members: spouse marital status: education level: college occupational status: retired occupation: [employer] smoking status: Never smoker alcohol intake frequency: a few times a week substance use type: does not use MEDS/ALLERGIES Home Medications and Allergies Home Medications Medication Instructions Recorded Confirmed Type blood-glucose meter #1 ea 07/20/19 03/04/22 Rx albuterol sulfate 90 mcg/actuation 2 puff inhalation Q6H PRN 02/23/20 03/04/22 Rx aerosol inhaler (Ventolin HFA) shortness of breath or wheezing #8.5 grams blood sugar diagnostic (Blood #100 ea 04/23/20 03/04/22 Rx Glucose Test strips) metoprolol succinate 50 mg 100 mg PO QDAY 02/20/21 03/04/22 History tablet,extended release 24 hr cyanocobalamin (vitamin B-12) 1,000 mcg IM Q2W 03/04/21 03/04/22 History 1,000 mcg/mL injection solution finasteride 5 mg tablet 5 mg PO QDAY 03/12/21 03/04/22 History cholecalciferol (vitamin D3) 125 125 mcg PO QDAY #30 caps 03/14/21 03/04/22 Rx mcg (5,000 unit) capsule lipase 3,000-protease 1 cap PO BID #60 caps 05/21/21 03/04/22 Rx 9,500-amylase 15,000 unit capsule, delayed rel (Creon) GO-out daily maintenance 1 tab PO QDAY PRN Pain 06/12/21 03/04/22 History acetaminophen 500 mg capsule 500 mg PO Q6H PRN Pain 06/12/21 03/04/22 History loperamide 2 mg capsule (Imodium 2 mg PO Q6H PRN Diarrhea 06/12/21 03/04/22 History A-D) phenylephrine 5 See Rx Instructions .Route .COMPLEX 06/12/21 03/04/22 History mg-dextromethorphan 10 mg-acetaminophen 325 mg capsule (Vicks DayQuil Cold and Flu Relief) tamsulosin 0.4 mg capsule 0.4 mg PO BID 06/12/21 03/04/22 History valacyclovir 1 gram tablet 1,000 mg PO QDAY 06/12/21 03/04/22 History Lactobac no.2-Bifidobac no.1-S. 1 cap PO QDAY #30 caps 07/22/21 03/04/22 Rx thermo 112.5 billion cell capsule (VSL#3) warfarin 1 mg tablet 1 mg PO QMWF #9 tabs 09/03/21 03/04/22 Rx empagliflozin 10 mg tablet 10 mg PO QAM #90 tabs 09/05/21 03/04/22 Rx (Jardiance) albuterol sulfate 90 mcg/actuation 2 puff inhalation Q6H PRN cough, 12/11/21 03/04/22 Rx aerosol inhaler (ProAir HFA) shortness of breath, wheezing #8.5 grams ashwagandha root extract 1 cap PO DAILY 12/16/21 03/04/22 History azithromycin 250 mg tablet See Rx Instructions PO QDAY #6 tabs 12/23/21 03/04/22 Rx insulin glargine 100 unit/mL (3 30 unit (0.3 mL) subcut QPM 12/30/21 03/04/22 Rx mL) subcutaneous pen (Basaglar diabetic #15 mL KwikPen U-100 Insulin) levothyroxine 125 mcg tablet 125 mcg PO QDAY #90 tabs 01/13/22 03/04/22 Rx warfarin 3 mg tablet 3 mg PO .COMPLEX 01/30/22 03/04/22 History gabapentin 300 mg capsule 300 mg PO BID #180 caps 02/10/22 03/04/22 Rx tramadol 50 mg tablet 50 mg PO BID PRN pain #60 tabs 02/12/22 03/04/22 Rx clonazepam 0.5 mg tablet 0.5 mg PO QDAY PRN anxiety #30 tabs 02/14/22 03/04/22 Rx bupropion HCl 300 mg 24 hr tablet, 300 mg PO QAM #30 tabs 03/13/22 Rx extended release (Wellbutrin XL) mirtazapine 30 mg tablet (Remeron) 30 mg PO QHS #30 tabs 03/13/22 Rx Allergies Allergy/AdvReac Type Severity Reaction Status Date / Time hydrocodone AdvReac Mild itching Verified 03/13/22 10:14 oxycodone AdvReac Mild Itching Verified 03/13/22 10:14 EXAM Constitutional Vitals: Temp Pulse Resp BP Pulse Ox O2 Del Method 36.1 C 76 20 135/85 95 03/13/22 10:15 03/13/22 17:40 03/13/22 10:15 03/13/22 17:40 03/13/22 17:40 03/13/22 10:15 General appearance: cooperative and no acute distress Head Head exam: Present atraumatic and normocephalic Eye Eye exam: Present EOMI and PERRL ENT ENT exam: Present mucous membranes moist, normal exam and normal external ear exam Neck Neck exam: Present normal inspection; Absent lymphadenopathy, tenderness or thyromegaly Respiratory Respiratory exam: Absent accessory muscle use, respiratory distress or wheezes Cardiovascular Cardiovascular exam: Present irregular rhythm; Absent JVD GI/Abdominal GI/Abdominal exam: Present normal bowel sounds and soft; Absent organomegaly or tenderness Rectal Rectal exam: Present deferred Extremities Exam Extremities exam: Present full ROM, normal capillary refill, normal inspection and tenderness Neurological Exam Neurological exam: Present alert, CN II-XII intact and oriented X3; Absent motor sensory deficit Psychiatric Psychiatric exam: Present normal affect and normal mood; Absent anxious or depressed Skin Skin exam: Present dry and intact DATA Data Completed and Pending Labs: Labs from last 24 hours 03/13/22 03/13/2222 13:45 11:13 11:05 WBC RBC Hgb Hct POC Hct 54.0 MCV MCH MCHC RDW Plt Count MPV Immature Gran % (Auto) Neut % (Auto) Lymph % (Auto) [place] % (Auto) Eos % (Auto) Baso % (Auto) Lymph # (Auto) [place] # (Auto) Eos # (Auto) Baso # (Auto) Immature Gran # Absolute Neutrophils POC Sodium 139 POC Potassium 4.4 POC Chloride 103 POC Total CO2 29.0 POC BUN 24 H POC Creatinine 1.5 H POC Glucose 135 H Calcium 10.0 POC WB Ioniz Calcium 0.75 L Magnesium Total Bilirubin Direct Bilirubin AST ALT Alkaline Phosphatase Total Protein Albumin Globulin Urine Color Yellow Urine Appearance Clear Urine pH 5.0 Ur Specific [place] 1.025 Urine Protein 100 A Urine Glucose (UA) >=500 A Urine Ketones 20 A Urine Occult Blood >=1.0 A Urine Nitrate Negative Urine Bilirubin Negative Urine Urobilinogen Negative Ur Leukocyte Esterase Negative Urine RBC > 182 H Urine WBC 4 Ur Squamous Epith Cells < 1 Urine Bacteria None Ur Culture Indicated? No 03/13/22 03/13/22 03/13/22 11:05 11:05 11:05 WBC 9.0 RBC 5.74 Hgb 17.5 Hct 53.6 H POC Hct MCV 93.4 MCH 30.5 MCHC 32.6 RDW 12.9 Plt Count 138 L MPV 9.1 Immature Gran % (Auto) 0.3 Neut % (Auto) 72.3 Lymph % (Auto) 12.2 L [place] % (Auto) 14.1 H Eos % (Auto) 0.9 Baso % (Auto) 0.2 Lymph # (Auto) 1.09 L [place] # (Auto) 1.26 H Eos # (Auto) 0.08 Baso # (Auto) 0.02 Immature Gran # 0.03 Absolute Neutrophils 6.48 POC Sodium POC Potassium POC Chloride POC Total CO2 POC BUN POC Creatinine POC Glucose Calcium POC WB Ioniz Calcium Magnesium 1.7 Total Bilirubin 1.3 H Direct Bilirubin 0.5 H AST 24 ALT 18 Alkaline Phosphatase 79 Total Protein 7.5 Albumin 4.1 Globulin 3.4 Urine Color Urine Appearance Urine pH Ur Specific [place] Urine Protein Urine Glucose (UA) Urine Ketones Urine Occult Blood Urine Nitrate Urine Bilirubin Urine Urobilinogen Ur Leukocyte Esterase Urine RBC Urine WBC Ur Squamous Epith Cells Urine Bacteria Ur Culture Indicated? A/P Assessment and plan (1) Hypothyroidism, acquired: Status: Chronic (2) BPH (benign prostatic hyperplasia): Status: Chronic (3) Atrial fibrillation: Status: Chronic Qualifiers: Atrial fibrillation type: unspecified chronic Qualified Code(s): I48.20 - Chronic atrial fibrillation, unspecified (4) Depression, major, recurrent: Status: Chronic (5) Anxiety, generalized: Status: Chronic (6) T2DM (type 2 diabetes mellitus): Status: Acute (7) Osteoarthritis: Status: Chronic (8) General weakness: Status: Acute Narrative A/P Narrative: Assessment and Plans: 1. General weakness: Observation med surg Physical therapy evaluation and treatment Occupational therapy evaluation and treatment Case management 2. Generalized osteoarthritis: Tramadol Physical therapy evaluation and treatment Occupational therapy evaluation and treatment Case management 3. Hypothyroidism: Continue thyroid replacement therapy 4. BPH: Continue Flomax and Finasteride 5. Anxiety with depression: Wellbutrin Clonazepam Mirtazapine 6. T2DM: HgA1c Hold oral hypoglycemics Lantus Insulin Lispro SSI AC HS Accu Check AC HS Hypoglycemia protocol Diabetic diet Gabapentin 7. Atrial fibrillation: Metoprolol ER Warfarin with INR for dosing GI ppx: not currently indicated DVT ppx: Warfarin Code status: Full Prognosis: stable Disposition: observation med surg; PT OT Time Spent With Patient Time: Total time spent is greater than 50% in coordination of care (as documented) at patient's floor/unit and/or counseling patient: Total time spent with greater than 50% in coordination of care (as documented) at patient's floor/unit and/or counseling patient:: 50 - 70 minutes
[2022-03-13] MEDS ORDERED: IPRATROPIUM/ALBUTEROL 3 ML AMPUL.NEB NEB PRN (20:05)
[2022-03-13] MEDS ORDERED: ONDANSETRON 4 MG/2 ML VIAL IV PRN (20:05)
[2022-03-13] MEDS ORDERED: DEXTROSE 31 GM ORAL.SUSP PO PRN (20:05)
[2022-03-13] MEDS ORDERED: DEXTROSE 50% 50 ML VIAL IV PRN (20:05)
[2022-03-13] MEDS ORDERED: ALBUTEROL SULFATE 200 PUFF INHALER INH PRN (20:59)
[2022-03-13] MEDS ORDERED: NON FORMULARY MEDICATION 1 DOSE MISCELL (Acetaminophen 500 mg capsule) PO PRN (20:59)
[2022-03-13] MEDS ORDERED: LOPERAMIDE 2 MG CAPSULE PO PRN (20:59)
[2022-03-13] MEDS ORDERED: [UNRECOGNIZED DRUG - OTHER] PO PRN (20:59)
[2022-03-13] MEDS ORDERED: clonazePAM 0.5 MG TABLET PO PRN (20:59)
[2022-03-13] MEDS ORDERED: [UNRECOGNIZED DRUG - OTHER] PO SCH (21:00)
[2022-03-13] MEDS ORDERED: LIPASE PROTEASE AMYLASE PO SCH (21:00)
[2022-03-13] MEDS ORDERED: INSULIN GLARGINE, HUMAN 1 UNIT/0.01 ML SQ SCH (21:00)
[2022-03-13] MEDS ORDERED: [UNRECOGNIZED DRUG - OTHER] SCH (22:00)
[2022-03-13] MEDS: DOCUSATE SODIUM 100 MG CAPSULE PO SCH (22:00)
[2022-03-13] MEDS ORDERED: 0.9 % SODIUM CHLORIDE 10 ML SYRINGE IV SCH (22:00)
[2022-03-13] MEDS: INSULIN LISPRO 1 UNIT/0.01 ML UNIT SQ SCH (22:01)
[2022-03-13] MEDS: SENNOSIDES 1 TABLET PO SCH (22:01)
[2022-03-13] MEDS ORDERED: traMADol (PP) 50 MG TABLET (#4) PO PRN (22:17)
[2022-03-13] MEDS: GABAPENTIN 300 MG CAPSULE PO SCH (22:20)
[2022-03-13] MEDS: ACETAMINOPHEN 325 MG TABLET PO PRN (22:20)
[2022-03-13] MEDS: INSULIN GLARGINE, HUMAN 1 UNIT/0.01 ML SQ SCH (22:27)
[2022-03-13] MEDS ORDERED: INSULIN GLARGINE, HUMAN 1 UNIT/0.01 ML SQ ONE (22:30)
[2022-03-13] MEDS ORDERED: GABAPENTIN 300 MG CAPSULE ONE (22:32)
[2022-03-13 22:38] LABS: Hemoglobin A1C 8.4 % Hgb (4.0-6.0)
[2022-03-14] MEDS ORDERED: ZOLPIDEM 5 MG TABLET PO PRN (00:36)
[2022-03-14] MEDS ORDERED: traMADol 50 MG TABLET PO ONE (02:35)
[2022-03-14] MEDS: ACETAMINOPHEN 325 MG TABLET PO PRN (04:05)
[2022-03-14] MEDS ORDERED: traMADol 50 MG TABLET PO PRN (06:15)
[2022-03-14 06:55] LABS: Basophils # (Auto) 0.03 K/mcL (0.00-0.30); Basophils % (Auto) 0.3 % (0.0-2.0); Eosinophils # (Auto) 0.08 K/mcL (0.00-0.70); Eosinophils % (Auto) 0.8 % (0.0-7.0); Hematocrit 46.8 % (40.1-51.0); Hemoglobin 15.6 g/dL (13.7-17.5); Lymphocytes # (Auto) 1.42 K/mcL (1.50-4.80); Lymphocytes % (Auto) 14.9 % (15.5-49.0); Mean Corpuscular HGB Conc 33.3 g/dL (31.0-36.0); Mean Platelet Volume 9.9 fL (8.8-12.5); Monocytes # (Auto) 1.57 K/mcL (0.10-0.90); Monocytes % (Auto) 16.5 % (1.0-12.0); Neutrophils % (Auto) 67.2 % (38.0-78.0); Platelet Count 135 K/mcL (140-440); RBC 5.03 M/mcL (4.63-6.08); Red Cell Distribution Width 12.7 % (11.5-14.5); WBC 9.5 K/mcL (4.5-11.0)
[2022-03-14 07:12] LABS: INR 1.7 (0.9-1.1); Prothrombin Time 20.8 sec (11.9-14.5)
[2022-03-14 07:19] LABS: ALT/SGPT 20 U/L (<40); AST/SGOT 32 U/L (<40); Albumin 3.3 gm/dL (3.2-5.2); Albumin/Globulin Ratio 1.1 (1.0-2.3); Alkaline Phosphatase 79 U/L (39-117); Bilirubin,Total 1.2 mg/dL (0.1-1.0); Blood Urea Nitrogen 22 mg/dL (8-23); Carbon Dioxide 23 mmol/L (22-30); Chloride 100 mmol/L (96-108); Glomerular Filtration Rate 48; Glucose 186 mg/dL (70-105)
[2022-03-14] MEDS: INSULIN LISPRO 1 UNIT/0.01 ML UNIT SQ SCH ×4 (07:20→21:32)
[2022-03-14] MEDS: LACTOBACILLUS 1 CAPSULE PO SCH (08:48)
[2022-03-14] MEDS: buPROPion 150 MG TAB.XL.24H PO SCH (08:49)
[2022-03-14] MEDS: DOCUSATE SODIUM 100 MG CAPSULE PO SCH ×2 (08:49→21:33)
[2022-03-14] MEDS: FINASTERIDE 5 MG TABLET PO SCH (08:49)
[2022-03-14] MEDS: TAMSULOSIN 0.4 MG CAPSULE PO SCH ×2 (08:49→21:34)
[2022-03-14] MEDS: GABAPENTIN 300 MG CAPSULE PO SCH ×2 (08:50→21:33)
[2022-03-14] MEDS: LEVOTHYROXINE 125 MCG TABLET PO SCH (08:50)
[2022-03-14] MEDS: VITAMIN D3 125 MCG TABLET PO SCH (08:50)
[2022-03-14] MEDS ORDERED: [UNRECOGNIZED DRUG - OTHER] PO SCH (09:00)
--- NOTE | 2022-03-14 09:20 | EKG ---
[facility] Minor Care Test Date: 2022-03-13 Pat Name: Bryan Hanson Department: ED Room: Gender: Male Implementation Engineer: CS : [id number] Requested By: Wesley Melton Order Number: [id number] Reading MD: Leonel Reza Measurements Intervals [place] Rate: 93 P: -33 CA: 238 QRS: -81 QRSD: 140 T: 51 QT: 378 QTc: 471 Interpretive Statements Sinus rhythm Prolonged CA interval RBBB Electronically Signed On 03-14-2022 9:18:48 PDT by Leonel Reza /store/M0/[id number]
[2022-03-14] MEDS: LIPASE/PROTEASE/AMYLASE 1 CAP CAPSULE PO SCH ×2 (09:50→21:39)
[2022-03-14] MEDS: valACYclovir 500 MG TABLET PO SCH (09:51)
[2022-03-14] MEDS ORDERED: WARFARIN 1 MG TABLET PO SCH (10:00)
[2022-03-14] MEDS: LIDOCAINE PATCH TOPICAL SCH (10:59)
[2022-03-14] MEDS: traMADol 50 MG TABLET PO PRN ×2 (11:41→21:33)
--- NOTE | 2022-03-14 13:10 | Internal Med Progress Note ---
SUBJECTIVE Subjective Patient information: Note initiated : 03/14/22 at 1:07 pm Service Date, if different from initiated Date: [] Patient: Bryan Hanson a 76 y/o M admitted on 03/13/22 for General Weakness. Chief Complaint: [] Interval history: ame Hanson is a 76 year old M history of hypothyroidism, BPH, type 2 diabetes mellitus, anxiety with depressions, atrial fibrillation's, generalized osteoarthritis status post left hip and knee replacement, presenting with 4-day history of left knee pain, inability to walk, and general weakness. According to the and daughter at the bedside, at baseline patient was able to walk as much as he would want to but since last Thursday he was not able to walk and essentially bedridden. He is also complaining of left knee and left ankle pain. Extensive x-ray including the entire left lower extremities were performed and no acute joint abnormalities suggest joint dislocations or bone fractures were identified. Chest x-ray unremarkable. CT of the head without contrast also unremarkable and this was no acute intracranial pathologies identified. Ionized calcium level 0.75, but the total calcium level 10.0 within normal range. Admission request was called for placement planning after physical therapy and Occupational Therapy evaluations. 03/14: No major overnight events. Serum calcium level at admission 10.0, today at 9.0. Patient denies in the left knee pain at the moment. Physical therapist occupational therapist saw the patient and recommend SNF placement. We will continue to provide symptoms relieved for any joint pain throughout we will change the patient's from observation to inpatient status while waiting for SNF placement. Constitutional Vitals: Vital Signs Temp Pulse Resp BP Pulse Ox O2 Del Method 37.1 C 65 16 108/65 95 03/14/22 12:00 03/14/22 12:00 03/14/22 12:00 03/14/22 12:00 03/14/22 12:00 03/14/22 12:00 Period Temp Pulse Resp BP Sys/Mehta Pulse Ox O2 Del Method O2 Flow Rate Last 24 Hr 36.9 C-37.7 C 65-99 16-24 108-153/58-112 93-99 Room Air-Room Air Intake and Output 03/13/22 03/14/22 03/14/22 21:59 05:59 13:59 Intake Total 500 1100 120 Output Total 101 153 200 Balance 399 947 -80 Weight 106.231 kg Intake & Output: Intake & Output 03/13/22 03/14/22 03/14/22 21:59 05:59 13:59 Intake Total 500 1100 120 Output Total 101 153 200 Balance 399 947 -80 Weight 106.231 kg Intake: IV 500 Vancomycin 2,000 mg In Sodium 500 Chloride 0.9% 500 ml @ 250 mls/ hr IV ONCE ONE Rx#:[id number] Oral 1100 120 Output: Void Amount 100 150 200 # of times incontinent of urine 1 3 Other: Meal Breakfast Percent of Meal Consumed 100% Urine Appearance Clear Clear Clear Urine Color Dark Yellow Dark Yellow Dark Yellow Head Head exam: Present atraumatic and normal inspection Eye Eye exam: Present normal appearance ENT ENT exam: Present mucous membranes moist, normal exam and normal external ear exam Neck Neck exam: Present normal inspection Respiratory Respiratory exam: Present normal respiratory exam Cardiovascular Cardiovascular exam: Present irregular rhythm GI/Abdominal GI/Abdominal exam: Present normal bowel sounds Extremities Exam Extremities exam: Present tenderness; Absent full ROM or normal inspection Additional comments: Stiffness, tenderness to palpation left knee Back Exam Back exam: Present normal inspection Neurological Exam Neurological exam: Present alert and oriented X3 Skin Skin exam: Present intact and warm OBJ DATA Labs CBC & Chem 7: 03/14/22 06:00 03/14/22 06:00 Labs: Abnormal Lab Results 03/14/22 03/14/22 03/14/22 06:00 06:00 06:00 Hct Plt Count 135 L Lymph % (Auto) 14.9 L [place] % (Auto) 16.5 H Lymph # (Auto) 1.42 L [place] # (Auto) 1.57 H PT 20.8 H INR 1.7 H POC BUN Creatinine 1.4 H POC Creatinine Glucose 186 H POC Glucose Hemoglobin A1c POC WB Ioniz Calcium Total Bilirubin 1.2 H Direct Bilirubin Urine Protein Urine Glucose (UA) Urine Ketones Urine Occult Blood Urine RBC 03/13/22 03/13/22 03/13/22 13:45 11:13 11:05 Hct Plt Count Lymph % (Auto) [place] % (Auto) Lymph # (Auto) [place] # (Auto) PT INR POC BUN 24 H Creatinine POC Creatinine 1.5 H Glucose POC Glucose 135 H Hemoglobin A1c 8.4 H POC WB Ioniz Calcium 0.75 L Total Bilirubin Direct Bilirubin Urine Protein 100 A Urine Glucose (UA) >=500 A Urine Ketones 20 A Urine Occult Blood >=1.0 A Urine RBC > 182 H 03/13/22 03/13/22 11:05 11:05 Hct 53.6 H Plt Count 138 L Lymph % (Auto) 12.2 L [place] % (Auto) 14.1 H Lymph # (Auto) 1.09 L [place] # (Auto) 1.26 H PT INR POC BUN Creatinine POC Creatinine Glucose POC Glucose Hemoglobin A1c POC WB Ioniz Calcium Total Bilirubin 1.3 H Direct Bilirubin 0.5 H Urine Protein Urine Glucose (UA) Urine Ketones Urine Occult Blood Urine RBC Meds: Medications Acetaminophen (Acetaminophen 325 Mg Tablet) 650 mg PO Q6HP PRN; Protocol PRN Reason: Per Pain Protocol/Fever > 101 Last Admin: 03/14/22 04:05 Dose: 650 mg Albuterol Sulfate (Albuterol Sulfate 200 Puff Inhaler) 2 puff INH Q6HP PRN PRN Reason: shortness of breath or wheezing Albuterol/Ipratropium (Ipratropium/Albuterol 3 Ml Ampul.Neb) 3 ml NEB Q4HRT PRN PRN Reason: Wheezing Lipase/Protease/Amylase (Lipase/Protease/Amylase 1 Cap Capsule) 1 cap PO BID [facility] Last Admin: 03/14/22 09:50 Dose: 1 cap Bupropion HCl (Bupropion 150 Mg Tab.Xl.24h) 300 mg PO DAILY [facility] Last Admin: 03/14/22 08:49 Dose: 300 mg Clonazepam (Clonazepam 0.5 Mg Tablet) 0.5 mg PO QDAY PRN PRN Reason: anxiety Cyanocobalamin (Cyanocobalamin 1,000 Mcg/Ml Vial) 1,000 mcg IM Q2W [facility] Dextrose (Dextrose 50% 50 Ml Vial) 0 ml IV UD PRN PRN Reason: Per Sliding Scale Diagnostic Test (Pha) (Accu-Chek 1 Each Strip) 1 each FS ACHS [facility] Last Admin: 03/14/22 11:43 Dose: 1 each Docusate Sodium (Docusate Sodium 100 Mg Capsule) 100 mg PO BID [facility] Last Admin: 03/14/22 08:49 Dose: 100 mg Finasteride (Finasteride 5 Mg Tablet) 5 mg PO QDAY [facility] Last Admin: 03/14/22 08:49 Dose: 5 mg Gabapentin (Gabapentin 300 Mg Capsule) 300 mg PO BID [facility] Last Admin: 03/14/22 08:50 Dose: 300 mg Glucose (Dextrose 31 Gm Oral.Susp) 15 gm PO PRN PRN PRN Reason: Hypoglycemia Insulin Glargine (Insulin Glargine, Human 1 Unit/0.01 Ml) 35 unit SQ [facility] Last Admin: 03/13/22 22:27 Dose: 35 units Insulin Human Lispro (Insulin Lispro 1 Unit/0.01 Ml Unit) 0 unit SQ [facility]; Protocol Last Admin: 03/14/22 11:34 Dose: 4 units Lactobacillus Rhamnosus (Lactobacillus 1 Capsule) 1 cap PO QDAY [facility] Last Admin: 03/14/22 08:48 Dose: 1 cap Levothyroxine Sodium (Levothyroxine 125 Mcg Tablet) 125 mcg PO QDAY [facility] Last Admin: 03/14/22 08:50 Dose: 125 mcg Lidocaine (Lidocaine Patch) 1 patch TOPICAL DAILY@1000 [facility] Last Admin: 03/14/22 10:59 Dose: 1 patch Loperamide HCl (Loperamide 2 Mg Capsule) 2 mg PO Q6H PRN PRN Reason: Diarrhea Metoprolol Succinate (Metoprolol Succinate 50 Mg Tab.Xl.24h) 100 mg PO QPM [facility] Mirtazapine (Mirtazapine 15 Mg Tablet) 30 mg PO [facility] Ondansetron HCl (Ondansetron 4 Mg/2 Ml Vial) 4 mg IV Q6HP PRN PRN Reason: Nausea And Vomiting Pneumococcal Polyvalent Vaccine (Pneumococcal 23-Samra P-Sac Vac 0.5 Ml Syringe) 0.5 ml IM .ONCE ONE Stop: 03/15/22 10:01 Senna (Sennosides 1 Tablet) 2 tab PO [facility] Last Admin: 03/13/22 22:01 Dose: 2 tab Tamsulosin HCl (Tamsulosin 0.4 Mg Capsule) 0.4 mg PO BID [facility] Last Admin: 03/14/22 08:49 Dose: 0.4 mg Tramadol HCl (Tramadol 50 Mg Tablet) 50 mg PO Q6HP PRN PRN Reason: pain Last Admin: 03/14/22 11:41 Dose: 50 mg Trazodone HCl (Trazodone Hcl 50 Mg Tablet) 25 mg PO HSP PRN PRN Reason: Insomnia Valacyclovir HCl (Valacyclovir 500 Mg Tablet) 1,000 mg PO QDAY [facility] Last Admin: 03/14/22 09:51 Dose: 1,000 mg Vitamin D (Vitamin D3 125 Mcg Tablet) 125 mcg PO DAILY [facility] Last Admin: 03/14/22 08:50 Dose: 125 mcg Warfarin Sodium (Warfarin 3 Mg Tablet) 3 mg PO .COMPLEX [facility] Warfarin Sodium (Warfarin 1 Mg Tablet) 1 mg PO QMWF [facility] Zolpidem Tartrate (Zolpidem 5 Mg Tablet) 5 mg PO HSP PRN PRN Reason: Insomnia A/P Assessment and plan (1) Hypothyroidism, acquired: Status: Chronic (2) BPH (benign prostatic hyperplasia): Status: Chronic (3) Atrial fibrillation: Status: Chronic Qualifiers: Atrial fibrillation type: unspecified chronic Qualified Code(s): I48.20 - Chronic atrial fibrillation, unspecified (4) Depression, major, recurrent: Status: Chronic (5) Anxiety, generalized: Status: Chronic (6) T2DM (type 2 diabetes mellitus): Status: Acute (7) Osteoarthritis: Status: Chronic (8) General weakness: Status: Acute Narrative A/P Narrative: Assessment and Plans: 1. General weakness: Inpatient med surg, patient will likely stays more than 2 midnights Physical therapy evaluation and treatment-->recs. SNF placement Occupational therapy evaluation and treatment-->recs. SNF placement Case management for placement planning 2. Generalized osteoarthritis: Tramadol Lidocaine patch Physical therapy evaluation and treatment Occupational therapy evaluation and treatment Case management 3. Hypothyroidism: Continue thyroid replacement therapy 4. BPH: Continue Flomax and Finasteride 5. Anxiety with depression: Wellbutrin Clonazepam Mirtazapine 6. T2DM: HgA1c 8.4 Hold oral hypoglycemics Lantus Insulin Lispro SSI AC HS Accu Check AC HS Hypoglycemia protocol Diabetic diet Gabapentin 7. Atrial fibrillation: Metoprolol ER Warfarin with INR for dosing GI ppx: not currently indicated DVT ppx: Warfarin Code status: Full Prognosis: stable Disposition: inpatient med surg; pending SNF placement Time Spent With Patient Time: Total time spent is greater than 50% in coordination of care (as documented) at patient's floor/unit and/or counseling patient: Total time spent with greater than 50% in coordination of care (as documented) at patient's floor/unit and/or counseling patient:: 25 - 35 minutes QUALITY VTE Deep Vein Thrombosis/Pulmonary Embolism Present on Admission: No
[2022-03-14] MEDS ORDERED: WARFARIN 3 MG TABLET PO ONE (14:00)
[2022-03-14] MEDS ORDERED: INSULIN GLARGINE, HUMAN 1 UNIT/0.01 ML SQ SCH (21:00)
[2022-03-14] MEDS: METOPROLOL SUCCINATE 50 MG TAB.XL.24H PO SCH (21:33)
[2022-03-14] MEDS: INSULIN GLARGINE, HUMAN 1 UNIT/0.01 ML SQ SCH (21:33)
[2022-03-14] MEDS: traZODone HCL 50 MG TABLET PO PRN (21:34)
[2022-03-14] MEDS: MIRTAZAPINE 15 MG TABLET PO SCH (21:34)
[2022-03-14] MEDS: SENNOSIDES 1 TABLET PO SCH (21:39)
[2022-03-15] MEDS: ACETAMINOPHEN 325 MG TABLET PO PRN ×2 (03:34→13:02)
[2022-03-15 07:05] LABS: INR 1.4 (0.9-1.1); Prothrombin Time 17.6 sec (11.9-14.5)
[2022-03-15] MEDS: INSULIN LISPRO 1 UNIT/0.01 ML UNIT SQ SCH ×4 (07:36→21:04)
[2022-03-15] MEDS: traMADol 50 MG TABLET PO PRN ×2 (07:47→14:29)
[2022-03-15] MEDS: LACTOBACILLUS 1 CAPSULE PO SCH (08:23)
[2022-03-15] MEDS: LEVOTHYROXINE 125 MCG TABLET PO SCH (08:23)
[2022-03-15] MEDS: TAMSULOSIN 0.4 MG CAPSULE PO SCH ×2 (08:24→20:51)
[2022-03-15] MEDS: VITAMIN D3 125 MCG TABLET PO SCH (08:24)
[2022-03-15] MEDS: buPROPion 150 MG TAB.XL.24H PO SCH (08:24)
[2022-03-15] MEDS: DOCUSATE SODIUM 100 MG CAPSULE PO SCH ×2 (08:24→20:51)
[2022-03-15] MEDS: GABAPENTIN 300 MG CAPSULE PO SCH ×2 (08:24→20:51)
[2022-03-15] MEDS: FINASTERIDE 5 MG TABLET PO SCH (08:24)
[2022-03-15] MEDS: valACYclovir 500 MG TABLET PO SCH (08:25)
[2022-03-15] MEDS: LIPASE/PROTEASE/AMYLASE 1 CAP CAPSULE PO SCH ×2 (08:25→20:52)
[2022-03-15] MEDS: LIDOCAINE PATCH TOPICAL SCH (09:19)
[2022-03-15] MEDS ORDERED: PNEUMOCOCCAL 23-VAL P-SAC VAC 0.5 ML SYRINGE IM ONE (10:00)
--- NOTE | 2022-03-15 11:54 | Internal Med Progress Note ---
SUBJECTIVE Subjective Patient information: Note initiated : 03/15/22 at 11:49 am Service Date, if different from initiated Date: [] Patient: Bryan Hanson a 76 y/o M admitted on 03/14/22 for General Weakness. Chief Complaint: [] Interval history: ame Hanson is a 76 year old M history of hypothyroidism, BPH, type 2 diabetes mellitus, anxiety with depressions, atrial fibrillation's, generalized osteoarthritis status post left hip and knee replacement, presenting with 4-day history of left knee pain, inability to walk, and general weakness. According to the and daughter at the bedside, at baseline patient was able to walk as much as he would want to but since last Thursday he was not able to walk and essentially bedridden. He is also complaining of left knee and left ankle pain. Extensive x-ray including the entire left lower extremities were performed and no acute joint abnormalities suggest joint dislocations or bone fractures were identified. Chest x-ray unremarkable. CT of the head without contrast also unremarkable and this was no acute intracranial pathologies identified. Ionized calcium level 0.75, but the total calcium level 10.0 within normal range. Admission request was called for placement planning after physical therapy and Occupational Therapy evaluations. 03/14: No major overnight events. Serum calcium level at admission 10.0, today at 9.0. Patient denies in the left knee pain at the moment. Physical therapist occupational therapist saw the patient and recommend SNF placement. We will continue to provide symptoms relief for any joint pain throughout we will change the patient's from observation to inpatient status while waiting for SNF placement. 03/15: No major overnight events. Patient denies in the left knee pain at the moment. We will continue to provide symptoms relief. Will repeat CMP to trend serum calcium level tomorrow and will replace if needed. Pending SNF placement. Constitutional Vitals: Vital Signs Temp Pulse Resp BP Pulse Ox O2 Del Method 36.7 C 72 14 123/62 97 03/15/22 08:00 03/15/22 08:00 03/15/22 08:00 03/15/22 08:00 03/15/22 08:00 03/15/22 08:00 Period Temp Pulse Resp BP Sys/Mehta Pulse Ox O2 Del Method O2 Flow Rate Last 24 Hr 36.7 C-37.2 C 65-122 14-20 108-150/62-89 94-100 Room Air-Room Air Intake and Output 03/14/22 03/15/22 03/15/22 21:59 05:59 13:59 Intake Total 470 200 Output Total 203 4 3 Balance 267 196 -3 Weight 107.229 kg Intake & Output: Intake & Output 03/14/22 03/15/22 03/15/22 21:59 05:59 13:59 Intake Total 470 200 Output Total 203 4 3 Balance 267 196 -3 Weight 107.229 kg Intake: Oral 470 200 Output: Void Amount 200 # of times incontinent of urine 3 4 3 Other: Meal Dinner Percent of Meal Consumed 75% Feeding Ability Assist with Tray Set Up Urine Appearance Clear Urine Color Light [place] Stool Size Large Stool Color Brown Stool Consistency Soft Formed # Bowel Movements 1 Head Head exam: Present atraumatic and normal inspection Eye Eye exam: Present normal appearance ENT ENT exam: Present mucous membranes moist, normal exam and normal external ear exam Neck Neck exam: Present normal inspection Respiratory Respiratory exam: Present normal respiratory exam Cardiovascular Cardiovascular exam: Present irregular rhythm GI/Abdominal GI/Abdominal exam: Present normal bowel sounds Extremities Exam Extremities exam: Present full ROM, normal inspection and tenderness Back Exam Back exam: Present normal inspection Neurological Exam Neurological exam: Present alert and oriented X3 Skin Skin exam: Present intact and warm OBJ DATA Labs CBC & Chem 7: 03/14/22 06:00 03/14/22 06:00 Labs: Abnormal Lab Results 03/15/22 03/14/22 03/14/22 05:48 06:00 06:00 Hct Plt Count Lymph % (Auto) [place] % (Auto) Lymph # (Auto) [place] # (Auto) PT 17.6 H 20.8 H INR 1.4 H 1.7 H POC BUN Creatinine 1.4 H POC Creatinine Glucose 186 H POC Glucose Hemoglobin A1c POC WB Ioniz Calcium Total Bilirubin 1.2 H Direct Bilirubin Urine Protein Urine Glucose (UA) Urine Ketones Urine Occult Blood Urine RBC 03/14/22 03/13/22 03/13/22 06:00 13:45 11:13 Hct Plt Count 135 L Lymph % (Auto) 14.9 L [place] % (Auto) 16.5 H Lymph # (Auto) 1.42 L [place] # (Auto) 1.57 H PT INR POC BUN 24 H Creatinine POC Creatinine 1.5 H Glucose POC Glucose 135 H Hemoglobin A1c POC WB Ioniz Calcium 0.75 L Total Bilirubin Direct Bilirubin Urine Protein 100 A Urine Glucose (UA) >=500 A Urine Ketones 20 A Urine Occult Blood >=1.0 A Urine RBC > 182 H 03/13/22 03/13/22 03/13/22 11:05 11:05 11:05 Hct 53.6 H Plt Count 138 L Lymph % (Auto) 12.2 L [place] % (Auto) 14.1 H Lymph # (Auto) 1.09 L [place] # (Auto) 1.26 H PT INR POC BUN Creatinine POC Creatinine Glucose POC Glucose Hemoglobin A1c 8.4 H POC WB Ioniz Calcium Total Bilirubin 1.3 H Direct Bilirubin 0.5 H Urine Protein Urine Glucose (UA) Urine Ketones Urine Occult Blood Urine RBC Meds: Medications Acetaminophen (Acetaminophen 325 Mg Tablet) 650 mg PO Q6HP PRN; Protocol PRN Reason: Per Pain Protocol/Fever > 101 Last Admin: 03/15/22 03:34 Dose: 650 mg Albuterol Sulfate (Albuterol Sulfate 200 Puff Inhaler) 2 puff INH Q6HP PRN PRN Reason: shortness of breath or wheezing Albuterol/Ipratropium (Ipratropium/Albuterol 3 Ml Ampul.Neb) 3 ml NEB Q4HRT PRN PRN Reason: Wheezing Lipase/Protease/Amylase (Lipase/Protease/Amylase 1 Cap Capsule) 1 cap PO BID [facility] Last Admin: 03/15/22 08:25 Dose: 1 cap Bupropion HCl (Bupropion 150 Mg Tab.Xl.24h) 300 mg PO DAILY [facility] Last Admin: 03/15/22 08:24 Dose: 300 mg Clonazepam (Clonazepam 0.5 Mg Tablet) 0.5 mg PO QDAY PRN PRN Reason: anxiety Cyanocobalamin (Cyanocobalamin 1,000 Mcg/Ml Vial) 1,000 mcg IM Q2W [facility] Dextrose (Dextrose 50% 50 Ml Vial) 0 ml IV UD PRN PRN Reason: Per Sliding Scale Diagnostic Test (Pha) (Accu-Chek 1 Each Strip) 1 each FS ACHS [facility] Last Admin: 03/15/22 11:22 Dose: 1 each Docusate Sodium (Docusate Sodium 100 Mg Capsule) 100 mg PO BID [facility] Last Admin: 03/15/22 08:24 Dose: 100 mg Finasteride (Finasteride 5 Mg Tablet) 5 mg PO QDAY [facility] Last Admin: 03/15/22 08:24 Dose: 5 mg Gabapentin (Gabapentin 300 Mg Capsule) 300 mg PO BID [facility] Last Admin: 03/15/22 08:24 Dose: 300 mg Glucose (Dextrose 31 Gm Oral.Susp) 15 gm PO PRN PRN PRN Reason: Hypoglycemia Insulin Glargine (Insulin Glargine, Human 1 Unit/0.01 Ml) 35 unit SQ [facility] Last Admin: 03/14/22 21:33 Dose: 35 units Insulin Human Lispro (Insulin Lispro 1 Unit/0.01 Ml Unit) 0 unit SQ [facility]; Protocol Last Admin: 03/15/22 11:28 Dose: 2 units Lactobacillus Rhamnosus (Lactobacillus 1 Capsule) 1 cap PO QDAY [facility] Last Admin: 03/15/22 08:23 Dose: 1 cap Levothyroxine Sodium (Levothyroxine 125 Mcg Tablet) 125 mcg PO QDAY [facility] Last Admin: 03/15/22 08:23 Dose: 125 mcg Lidocaine (Lidocaine Patch) 1 patch TOPICAL DAILY@1000 [facility] Last Admin: 03/15/22 09:19 Dose: 1 patch Loperamide HCl (Loperamide 2 Mg Capsule) 2 mg PO Q6H PRN PRN Reason: Diarrhea Metoprolol Succinate (Metoprolol Succinate 50 Mg Tab.Xl.24h) 100 mg PO QPM [facility] Last Admin: 03/14/22 21:33 Dose: 100 mg Mirtazapine (Mirtazapine 15 Mg Tablet) 30 mg PO [facility] Last Admin: 03/14/22 21:34 Dose: 30 mg Ondansetron HCl (Ondansetron 4 Mg/2 Ml Vial) 4 mg IV Q6HP PRN PRN Reason: Nausea And Vomiting Senna (Sennosides 1 Tablet) 2 tab PO [facility] Last Admin: 03/14/22 21:39 Dose: 2 tab Tamsulosin HCl (Tamsulosin 0.4 Mg Capsule) 0.4 mg PO BID [facility] Last Admin: 03/15/22 08:24 Dose: 0.4 mg Tramadol HCl (Tramadol 50 Mg Tablet) 50 mg PO Q6HP PRN PRN Reason: pain Last Admin: 03/15/22 07:47 Dose: 50 mg Trazodone HCl (Trazodone Hcl 50 Mg Tablet) 25 mg PO HSP PRN PRN Reason: Insomnia Last Admin: 03/14/22 21:34 Dose: 25 mg Valacyclovir HCl (Valacyclovir 500 Mg Tablet) 1,000 mg PO QDAY [facility] Last Admin: 03/15/22 08:25 Dose: 1,000 mg Vitamin D (Vitamin D3 125 Mcg Tablet) 125 mcg PO DAILY [facility] Last Admin: 03/15/22 08:24 Dose: 125 mcg Warfarin Sodium (Warfarin 3 Mg Tablet) 3 mg PO ONCE@1400 ONE Stop: 03/15/22 14:01 Zolpidem Tartrate (Zolpidem 5 Mg Tablet) 5 mg PO HSP PRN PRN Reason: Insomnia A/P Assessment and plan (1) Hypothyroidism, acquired: Status: Chronic (2) BPH (benign prostatic hyperplasia): Status: Chronic (3) Atrial fibrillation: Status: Chronic Qualifiers: Atrial fibrillation type: unspecified chronic Qualified Code(s): I48.20 - Chronic atrial fibrillation, unspecified (4) Depression, major, recurrent: Status: Chronic (5) Anxiety, generalized: Status: Chronic (6) T2DM (type 2 diabetes mellitus): Status: Acute (7) Osteoarthritis: Status: Chronic (8) General weakness: Status: Acute Narrative A/P Narrative: Assessment and Plans: 1. General weakness: Inpatient med surg, patient will likely stays more than 2 midnights Physical therapy evaluation and treatment-->recs. SNF placement Occupational therapy evaluation and treatment-->recs. SNF placement Case management for placement planning 2. Generalized osteoarthritis: Tramadol Lidocaine patch Physical therapy evaluation and treatment Occupational therapy evaluation and treatment Case management 3. Hypothyroidism: Continue thyroid replacement therapy 4. BPH: Continue Flomax and Finasteride 5. Anxiety with depression: Wellbutrin Clonazepam Mirtazapine 6. T2DM: HgA1c 8.4 Hold oral hypoglycemics Lantus Insulin Lispro SSI AC HS Accu Check AC HS Hypoglycemia protocol Diabetic diet Gabapentin 7. Atrial fibrillation: Metoprolol ER Warfarin with INR for dosing GI ppx: not currently indicated DVT ppx: Warfarin Code status: Full Prognosis: stable Disposition: inpatient med surg; pending SNF placement Time Spent With Patient Time: Total time spent is greater than 50% in coordination of care (as documented) at patient's floor/unit and/or counseling patient: Total time spent with greater than 50% in coordination of care (as documented) at patient's floor/unit and/or counseling patient:: 25 - 35 minutes QUALITY VTE Deep Vein Thrombosis/Pulmonary Embolism Present on Admission: No
[2022-03-15] MEDS ORDERED: WARFARIN 3 MG TABLET PO ONE (14:00)
[2022-03-15] MEDS: traZODone HCL 50 MG TABLET PO PRN (20:49)
[2022-03-15] MEDS: SENNOSIDES 1 TABLET PO SCH (20:51)
[2022-03-15] MEDS: MIRTAZAPINE 15 MG TABLET PO SCH (20:51)
[2022-03-15] MEDS: METOPROLOL SUCCINATE 50 MG TAB.XL.24H PO SCH (20:52)
[2022-03-15] MEDS: INSULIN GLARGINE, HUMAN 1 UNIT/0.01 ML SQ SCH (21:03)
[2022-03-16 07:15] LABS: INR 1.4 (0.9-1.1); Prothrombin Time 18.1 sec (11.9-14.5)
[2022-03-16 07:38] LABS: ALT/SGPT 38 U/L (<40); AST/SGOT 40 U/L (<40); Albumin 3.3 gm/dL (3.2-5.2); Albumin/Globulin Ratio 1.4 (1.0-2.3); Alkaline Phosphatase 89 U/L (39-117); Blood Urea Nitrogen 24 mg/dL (8-23); Calcium 8.8 mg/dL (8.6-10.4); Carbon Dioxide 25 mmol/L (22-30); Chloride 101 mmol/L (96-108); Globulin 2.4 gm/dL (2.2-3.7); Glomerular Filtration Rate 52; Glucose 152 mg/dL (70-105)
[2022-03-16] MEDS: INSULIN LISPRO 1 UNIT/0.01 ML UNIT SQ SCH ×4 (08:09→21:26)
[2022-03-16] MEDS: GABAPENTIN 300 MG CAPSULE PO SCH ×2 (09:32→21:25)
[2022-03-16] MEDS: ACETAMINOPHEN 325 MG TABLET PO PRN (09:33)
[2022-03-16] MEDS: LACTOBACILLUS 1 CAPSULE PO SCH (09:34)
[2022-03-16] MEDS: DOCUSATE SODIUM 100 MG CAPSULE PO SCH ×2 (09:34→21:25)
[2022-03-16] MEDS: VITAMIN D3 125 MCG TABLET PO SCH (09:34)
[2022-03-16] MEDS: buPROPion 150 MG TAB.XL.24H PO SCH (09:34)
[2022-03-16] MEDS: FINASTERIDE 5 MG TABLET PO SCH (09:34)
[2022-03-16] MEDS: LEVOTHYROXINE 125 MCG TABLET PO SCH (09:34)
[2022-03-16] MEDS: TAMSULOSIN 0.4 MG CAPSULE PO SCH ×2 (09:34→21:25)
[2022-03-16] MEDS: LIPASE/PROTEASE/AMYLASE 1 CAP CAPSULE PO SCH ×2 (09:35→21:26)
[2022-03-16] MEDS: LIDOCAINE PATCH TOPICAL SCH (09:35)
[2022-03-16] MEDS: valACYclovir 500 MG TABLET PO SCH (09:35)
--- NOTE | 2022-03-16 11:13 | Internal Med Progress Note ---
SUBJECTIVE Subjective Patient information: Note initiated : 03/16/22 at 11:11 am Service Date, if different from initiated Date: [] Patient: Bryan Hanson a 76 y/o M admitted on 03/14/22 for General Weakness. Chief Complaint: [] Interval history: ame Hanson is a 76 year old M history of hypothyroidism, BPH, type 2 diabetes mellitus, anxiety with depressions, atrial fibrillation's, generalized osteoarthritis status post left hip and knee replacement, presenting with 4-day history of left knee pain, inability to walk, and general weakness. According to the and daughter at the bedside, at baseline patient was able to walk as much as he would want to but since last Thursday he was not able to walk and essentially bedridden. He is also complaining of left knee and left ankle pain. Extensive x-ray including the entire left lower extremities were performed and no acute joint abnormalities suggest joint dislocations or bone fractures were identified. Chest x-ray unremarkable. CT of the head without contrast also unremarkable and this was no acute intracranial pathologies identified. Ionized calcium level 0.75, but the total calcium level 10.0 within normal range. Admission request was called for placement planning after physical therapy and Occupational Therapy evaluations. 03/14: No major overnight events. Serum calcium level at admission 10.0, today at 9.0. Patient denies in the left knee pain at the moment. Physical therapist occupational therapist saw the patient and recommend SNF placement. We will continue to provide symptoms relief for any joint pain throughout we will change the patient's from observation to inpatient status while waiting for SNF placement. 03/15: No major overnight events. Patient denies in the left knee pain at the moment. We will continue to provide symptoms relief. Will repeat CMP to trend serum calcium level tomorrow and will replace if needed. Pending SNF placement. 03/16: Serum calcium level 8.8 this morning. No major overnight events. Patient denies in the left knee pain at the moment. He is c/o tightness of the right ankle. We will continue to provide symptoms relief. Pending SNF placement. Constitutional Vitals: Vital Signs Temp Pulse Resp BP Pulse Ox O2 Del Method 37.6 C H 92 H 16 145/95 93 03/16/22 07:44 03/16/22 04:12 03/16/22 07:44 03/16/22 07:44 03/16/22 07:44 03/16/22 07:44 Period Temp Pulse Resp BP Sys/Mehta Pulse Ox O2 Del Method O2 Flow Rate Last 24 Hr 36.6 C-37.6 C 75-92 16-24 137-152/72-95 90-97 Room Air-Room Air Intake and Output 03/15/22 03/16/22 03/16/22 21:59 05:59 13:59 Intake Total 1560 700 Output Total 7 1 Balance 1560 693 -1 Weight 107.411 kg Intake & Output: Intake & Output 03/15/22 03/16/22 03/16/22 21:59 05:59 13:59 Intake Total 1560 700 Output Total 7 1 Balance 1560 693 -1 Weight 107.411 kg Intake: Oral 1560 700 Output: # of times incontinent of urine 7 1 Other: Meal Dinner Percent of Meal Consumed 50% Feeding Ability Assist with Tray Set Up Stool Color Brown Stool Consistency Formed # Voids 1 1 # Bowel Movements 1 1 Head Head exam: Present atraumatic and normal inspection Eye Eye exam: Present normal appearance ENT ENT exam: Present mucous membranes moist, normal exam and normal external ear exam Neck Neck exam: Present normal inspection Respiratory Respiratory exam: Present normal respiratory exam Cardiovascular Cardiovascular exam: Present irregular rhythm GI/Abdominal GI/Abdominal exam: Present normal bowel sounds Extremities Exam Extremities exam: Present joint swelling and tenderness; Absent full ROM Back Exam Back exam: Present normal inspection Neurological Exam Neurological exam: Present alert and oriented X3 Skin Skin exam: Present intact and warm OBJ DATA Labs CBC & Chem 7: 03/14/22 06:00 03/16/22 05:18 Labs: Abnormal Lab Results 03/16/22 03/16/22 03/15/22 05:18 05:18 05:48 Hct Plt Count Lymph % (Auto) Charles % (Auto) Lymph # (Auto) Charles # (Auto) PT 18.1 H 17.6 H INR 1.4 H 1.4 H POC BUN BUN 24 H Creatinine 1.3 H POC Creatinine Glucose 152 H POC Glucose Hemoglobin A1c POC WB Ioniz Calcium Total Bilirubin Direct Bilirubin AST 40 H Total Protein 5.7 L Urine Protein Urine Glucose (UA) Urine Ketones Urine Occult Blood Urine RBC 03/14/22 03/14/22 03/14/22 06:00 06:00 06:00 Hct Plt Count 135 L Lymph % (Auto) 14.9 L Charles % (Auto) 16.5 H Lymph # (Auto) 1.42 L Charles # (Auto) 1.57 H PT 20.8 H INR 1.7 H POC BUN BUN Creatinine 1.4 H POC Creatinine Glucose 186 H POC Glucose Hemoglobin A1c POC WB Ioniz Calcium Total Bilirubin 1.2 H Direct Bilirubin AST Total Protein Urine Protein Urine Glucose (UA) Urine Ketones Urine Occult Blood Urine RBC 03/13/22 03/13/22 03/13/22 13:45 11:13 11:05 Hct Plt Count Lymph % (Auto) Charles % (Auto) Lymph # (Auto) Charles # (Auto) PT INR POC BUN 24 H BUN Creatinine POC Creatinine 1.5 H Glucose POC Glucose 135 H Hemoglobin A1c 8.4 H POC WB Ioniz Calcium 0.75 L Total Bilirubin Direct Bilirubin AST Total Protein Urine Protein 100 A Urine Glucose (UA) >=500 A Urine Ketones 20 A Urine Occult Blood >=1.0 A Urine RBC > 182 H 03/13/22 03/13/22 11:05 11:05 Hct 53.6 H Plt Count 138 L Lymph % (Auto) 12.2 L Charles % (Auto) 14.1 H Lymph # (Auto) 1.09 L Charles # (Auto) 1.26 H PT INR POC BUN BUN Creatinine POC Creatinine Glucose POC Glucose Hemoglobin A1c POC WB Ioniz Calcium Total Bilirubin 1.3 H Direct Bilirubin 0.5 H AST Total Protein Urine Protein Urine Glucose (UA) Urine Ketones Urine Occult Blood Urine RBC Meds: Medications Acetaminophen (Acetaminophen 325 Mg Tablet) 650 mg PO Q6HP PRN; Protocol PRN Reason: Per Pain Protocol/Fever > 101 Last Admin: 03/16/22 09:33 Dose: 650 mg Albuterol Sulfate (Albuterol Sulfate 200 Puff Inhaler) 2 puff INH Q6HP PRN PRN Reason: shortness of breath or wheezing Albuterol/Ipratropium (Ipratropium/Albuterol 3 Ml Ampul.Neb) 3 ml NEB Q4HRT PRN PRN Reason: Wheezing Lipase/Protease/Amylase (Lipase/Protease/Amylase 1 Cap Capsule) 1 cap PO BID SYD Last Admin: 03/16/22 09:35 Dose: 1 cap Bupropion HCl (Bupropion 150 Mg Tab.Xl.24h) 300 mg PO DAILY [facility] Last Admin: 10/30/22 09:34 Dose: 300 mg Clonazepam (Clonazepam 0.5 Mg Tablet) 0.5 mg PO QDAY PRN PRN Reason: anxiety Cyanocobalamin (Cyanocobalamin 1,000 Mcg/Ml Vial) 1,000 mcg IM Q2W [facility] Dextrose (Dextrose 50% 50 Ml Vial) 0 ml IV UD PRN PRN Reason: Per Sliding Scale Diagnostic Test (Pha) (Accu-Chek 1 Each Strip) 1 each FS [facility] Last Admin: 03/16/22 08:05 Dose: 1 each Docusate Sodium (Docusate Sodium 100 Mg Capsule) 100 mg PO BID [facility] Last Admin: 03/16/22 09:34 Dose: 100 mg Finasteride (Finasteride 5 Mg Tablet) 5 mg PO QDAY [facility] Last Admin: 03/16/22 09:34 Dose: 5 mg Gabapentin (Gabapentin 300 Mg Capsule) 300 mg PO BID [facility] Last Admin: 03/16/22 09:32 Dose: 300 mg Glucose (Dextrose 31 Gm Oral.Susp) 15 gm PO PRN PRN PRN Reason: Hypoglycemia Insulin Glargine (Insulin Glargine, Human 1 Unit/0.01 Ml) 35 unit SQ [facility] Last Admin: 03/15/22 21:03 Dose: 35 units Insulin Human Lispro (Insulin Lispro 1 Unit/0.01 Ml Unit) 0 unit SQ [facility]; Protocol Last Admin: 03/16/22 08:09 Dose: 2 units Lactobacillus Rhamnosus (Lactobacillus 1 Capsule) 1 cap PO QDAY [facility] Last Admin: 03/16/22 09:34 Dose: 1 cap Levothyroxine Sodium (Levothyroxine 125 Mcg Tablet) 125 mcg PO QDAY [facility] Last Admin: 03/16/22 09:34 Dose: 125 mcg Lidocaine (Lidocaine Patch) 1 patch TOPICAL DAILY@1000 [facility] Last Admin: 03/16/22 09:35 Dose: 1 patch Loperamide HCl (Loperamide 2 Mg Capsule) 2 mg PO Q6H PRN PRN Reason: Diarrhea Metoprolol Succinate (Metoprolol Succinate 50 Mg Tab.Xl.24h) 100 mg PO QPM [facility] Last Admin: 03/15/22 20:52 Dose: 100 mg Mirtazapine (Mirtazapine 15 Mg Tablet) 30 mg PO HS [facility] Last Admin: 03/15/22 20:51 Dose: 30 mg Ondansetron HCl (Ondansetron 4 Mg/2 Ml Vial) 4 mg IV Q6HP PRN PRN Reason: Nausea And Vomiting Senna (Sennosides 1 Tablet) 2 tab PO HS [facility] Last Admin: 03/15/22 20:51 Dose: 2 tab Tamsulosin HCl (Tamsulosin 0.4 Mg Capsule) 0.4 mg PO BID [facility] Last Admin: 03/16/22 09:34 Dose: 0.4 mg Tramadol HCl (Tramadol 50 Mg Tablet) 50 mg PO Q6HP PRN PRN Reason: pain Last Admin: 03/15/22 14:29 Dose: 50 mg Trazodone HCl (Trazodone Hcl 50 Mg Tablet) 25 mg PO HSP PRN PRN Reason: Insomnia Last Admin: 03/15/22 20:49 Dose: 25 mg Valacyclovir HCl (Valacyclovir 500 Mg Tablet) 1,000 mg PO QDAY [facility] Last Admin: 03/16/22 09:35 Dose: 1,000 mg Vitamin D (Vitamin D3 125 Mcg Tablet) 125 mcg PO DAILY [facility] Last Admin: 03/16/22 09:34 Dose: 125 mcg Zolpidem Tartrate (Zolpidem 5 Mg Tablet) 5 mg PO HSP PRN PRN Reason: Insomnia A/P Assessment and plan (1) Hypothyroidism, acquired: Status: Chronic (2) BPH (benign prostatic hyperplasia): Status: Chronic (3) Atrial fibrillation: Status: Chronic Qualifiers: Atrial fibrillation type: unspecified chronic Qualified Code(s): I48.20 - Chronic atrial fibrillation, unspecified (4) Depression, major, recurrent: Status: Chronic (5) Anxiety, generalized: Status: Chronic (6) T2DM (type 2 diabetes mellitus): Status: Acute (7) Osteoarthritis: Status: Chronic (8) General weakness: Status: Acute Narrative A/P Narrative: Assessment and Plans: 1. General weakness: Inpatient med surg, patient will likely stays more than 2 midnights Physical therapy evaluation and treatment-->recs. SNF placement Occupational therapy evaluation and treatment-->recs. SNF placement Case management for placement planning 2. Generalized osteoarthritis: Tramadol Lidocaine patch Physical therapy evaluation and treatment Occupational therapy evaluation and treatment Case management 3. Hypothyroidism: Continue thyroid replacement therapy 4. BPH: Continue Flomax and Finasteride 5. Anxiety with depression: Wellbutrin Clonazepam Mirtazapine 6. T2DM: HgA1c 8.4 Hold oral hypoglycemics Lantus Insulin Lispro SSI AC HS Accu Check AC HS Hypoglycemia protocol Diabetic diet Gabapentin 7. Atrial fibrillation: Metoprolol ER Warfarin with INR for dosing GI ppx: not currently indicated DVT ppx: Warfarin Code status: Full Prognosis: stable Disposition: inpatient med surg; pending SNF placement Time Spent With Patient Time: Total time spent is greater than 50% in coordination of care (as documented) at patient's floor/unit and/or counseling patient: Total time spent with greater than 50% in coordination of care (as documented) at patient's floor/unit and/or counseling patient:: 35 - 50 minutes QUALITY VTE Deep Vein Thrombosis/Pulmonary Embolism Present on Admission: No
[2022-03-16] MEDS ORDERED: WARFARIN 5 MG TABLET PO ONE (14:00)
[2022-03-16] MEDS: traMADol 50 MG TABLET PO PRN ×2 (14:38→22:20)
[2022-03-16] MEDS: MIRTAZAPINE 15 MG TABLET PO SCH (21:25)
[2022-03-16] MEDS: METOPROLOL SUCCINATE 50 MG TAB.XL.24H PO SCH (21:25)
[2022-03-16] MEDS: SENNOSIDES 1 TABLET PO SCH (21:25)
[2022-03-16] MEDS: INSULIN GLARGINE, HUMAN 1 UNIT/0.01 ML SQ SCH (21:26)
[2022-03-16] MEDS: IBUPROFEN 600 MG TABLET PO PRN (21:30)
[2022-03-16] MEDS: traZODone HCL 50 MG TABLET PO PRN (22:22)
[2022-03-17] MEDS: INSULIN LISPRO 1 UNIT/0.01 ML UNIT SQ SCH ×2 (07:21→12:15)
[2022-03-17] MEDS: buPROPion 150 MG TAB.XL.24H PO SCH (08:20)
[2022-03-17] MEDS: TAMSULOSIN 0.4 MG CAPSULE PO SCH (08:20)
[2022-03-17] MEDS: DOCUSATE SODIUM 100 MG CAPSULE PO SCH (08:20)
[2022-03-17] MEDS: LEVOTHYROXINE 125 MCG TABLET PO SCH (08:21)
[2022-03-17] MEDS: LACTOBACILLUS 1 CAPSULE PO SCH (08:21)
[2022-03-17] MEDS: valACYclovir 500 MG TABLET PO SCH (08:22)
[2022-03-17] MEDS: GABAPENTIN 300 MG CAPSULE PO SCH (08:22)
[2022-03-17] MEDS: FINASTERIDE 5 MG TABLET PO SCH (08:22)
[2022-03-17] MEDS: VITAMIN D3 125 MCG TABLET PO SCH (08:22)
[2022-03-17] MEDS: LIPASE/PROTEASE/AMYLASE 1 CAP CAPSULE PO SCH (08:23)
[2022-03-17] MEDS: ACETAMINOPHEN 325 MG TABLET PO PRN (08:35)
[2022-03-17 10:05] LABS: INR 1.8 (0.9-1.1); Prothrombin Time 21.2 sec (11.9-14.5)
--- NOTE | 2022-03-17 10:17 | Discharge Summary ---
Discharge Provider Provider IMPORTANT FOLLOW-UP INFORMATION FOR PCP: Patient information: Note initiated : 03/17/22 at 10:13 am Service Date, if different from initiated Date: [] Patient: Bryan Hanson a 76 y/o M admitted on 03/14/22 for General Weakness. 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 According to the and daughter at the bedside, at baseline patient was able to walk as much as he would want to but since last Thursday he was not able to walk and essentially bedridden. He is also complaining of left knee and left ankle pain. Extensive x-ray including the entire left lower extremities were performed and no acute joint abnormalities suggest joint dislocations or bone fractures were identified. Chest x-ray unremarkable. CT of the head without contrast also unremarkable and this was no acute intracranial pathologies identified. Ionized calcium level 0.75, but the total calcium level 10.0 within normal range. Admission request was called for placement planning after physical therapy and Occupational Therapy evaluations. 03/14: No major overnight events. Serum calcium level at admission 10.0, today at 9.0. Patient denies in the left knee pain at the moment. Physical therapist occupational therapist saw the patient and recommend SNF placement. We will continue to provide symptoms relief for any joint pain throughout we will change the patient's from observation to inpatient status while waiting for SNF placement. 03/15: No major overnight events. Patient denies in the left knee pain at the moment. We will continue to provide symptoms relief. Will repeat CMP to trend serum calcium level tomorrow and will replace if needed. Pending SNF placement. 03/16: Serum calcium level 8.8 this morning. No major overnight events. Patient denies in the left knee pain at the moment. He is c/o tightness of the right ankle. We will continue to provide symptoms relief. Pending SNF placement. 03/17: Discharged to SNF. Discharge diagnosis: General weakness, generalized osteoarthritis Time Spent with Patient Time attestation: Total time spent providing and/or coordinating discharge services: Time spent: Greater than 30 minutes EXAM Constitutional Vitals: Temp Pulse Resp BP Pulse Ox O2 Del Method 36.2 C 79 20 154/81 98 03/17/22 07:23 03/17/22 07:23 03/17/22 07:23 03/17/22 07:23 03/17/22 07:23 03/17/22 08:00 General appearance: cooperative and no acute distress Head Head exam: Present atraumatic and normocephalic Eye Eye exam: Present EOMI and PERRL ENT ENT exam: Present mucous membranes moist, normal exam and normal external ear exam Neck Neck exam: Present normal inspection; Absent lymphadenopathy, tenderness or thyromegaly Respiratory Respiratory exam: Absent accessory muscle use, respiratory distress or wheezes Cardiovascular Cardiovascular exam: Present normal rate and rhythm; Absent JVD GI/Abdominal GI/Abdominal exam: Present normal bowel sounds and soft; Absent organomegaly or tenderness Rectal Rectal exam: Present deferred Extremities Exam Extremities exam: Present full ROM, normal capillary refill, normal inspection and tenderness Neurological Exam Neurological exam: Present alert, CN II-XII intact and oriented X3; Absent motor sensory deficit Psychiatric Psychiatric exam: Present normal affect and normal mood; Absent anxious or depressed Skin Skin exam: Present dry and intact Discharge Data Data Completed and Pending Labs on day of discharge: Labs from last 24 hours 03/17/22 06:14 PT 21.2 H INR 1.8 H Discharge Plan Patient/Caregiver Discharge Instructions Prescriptions: New lidocaine 5 % Adhesive Patch,Medicated 1 patch topical DAILY@1000 Qty: 10 0RF ibuprofen 600 mg Tablet 600 mg PO QIDP PRN (Reason: Pain/Fever > 101) Qty: 30 0RF Continued finasteride 5 mg tablet 5 mg PO QDAY (DME) Blood Glucose Test Strip See Rx Instructions .ROUTE .MEDSUPPLY Qty: 100 0RF Rx Instructions: Up to 3 checks daily cyanocobalamin (vitamin B-12) 1,000 mcg/mL solution 1,000 mcg IM Q2W cholecalciferol (vitamin D3) 125 mcg (5,000 unit) capsule 125 mcg PO QDAY Qty: 30 0RF Creon 3,000-9,500- 15,000 unit capsule,delayed release(DR/EC) 1 cap PO BID Qty: 60 5RF Rx Instructions: Take with meals, BID VSL#3 112.5 billion cell capsule 1 cap PO QDAY Qty: 30 0RF Jardiance 10 mg tablet 10 mg PO QAM Qty: 90 1RF levothyroxine 125 mcg tablet 125 mcg PO QDAY Qty: 90 1RF gabapentin 300 mg capsule 300 mg PO BID Qty: 180 0RF clonazepam 0.5 mg tablet 0.5 mg PO QDAY PRN (Reason: anxiety) Qty: 30 0RF mirtazapine [Remeron] 30 mg tablet 30 mg PO QHS Qty: 30 0RF bupropion HCl [Wellbutrin XL] 300 mg tablet extended release 24 hr 300 mg PO QAM Qty: 30 0RF (DME) blood-glucose meter Kit See Rx Instructions .ROUTE .MEDSUPPLY Qty: 1 0RF Rx Instructions: As directed metoprolol succinate 50 mg tablet extended release 24 hr 100 mg PO QPM albuterol sulfate [Ventolin HFA] 90 mcg/actuation HFA aerosol inhaler 2 puff INHALATION Q6H PRN (Reason: shortness of breath or wheezing) Qty: 8.5 4RF loperamide [Imodium A-D] 2 mg capsule 2 mg PO Q6H PRN (Reason: Diarrhea) Vicks DayQuil Cold-Flu Relief 5-10-325 mg capsule See Rx Instructions .ROUTE .COMPLEX Rx Instructions: Apply to chest for congestion acetaminophen 500 mg capsule 500 mg PO Q6H PRN (Reason: Pain) valacyclovir 1 gram tablet 1,000 mg PO QDAY GO-out daily maintenance 1 tab PO QDAY PRN (Reason: Pain) tamsulosin 0.4 mg capsule 0.4 mg PO BID insulin glargine [Basaglar KwikPen U-100 Insulin] 100 unit/mL (3 mL) insulin pen 100 unit subcut DAILY 0RF warfarin 3 mg tablet 3 mg PO .COMPLEX Protocol: Dose Management Condition: Thursday Dose/Route: 3 mg Instruction: 1 x 3 mg tablet Condition: Thursday Dose/Route: 3 mg Instruction: 1 x 3 mg tablet Condition: Thursday Dose/Route: 3 mg Instruction: 1 x 3 mg tablet Condition: Thursday Dose/Route: 3 mg Instruction: 1 x 3 mg tablet Condition: Dose/Route: 0 mg Instruction: 0 tablets Condition: Thursday Dose/Route: 3 mg Instruction: 1 x 3 mg tablet Condition: Thursday Dose/Route: 3 mg Instruction: 1 x 3 mg tablet Protocol Text: Adjustment Start Date: Thursday02/12/22 INR Value: 2.5 INR Date: 02/12/22 Recheck Date: 03/12/22 Label Comments: 3 mg x 6 days Rx Instructions: skip Th; 3mg x 6 days ashwagandha root extract 600 mg capsule 1 cap PO DAILY insulin glargine [Basaglar KwikPen U-100 Insulin] 100 unit/mL (3 mL) insulin pen 35 unit subcut QPM Changed tramadol 50 mg tablet 50 mg PO QID Qty: 20 0RF Follow Up Plan Follow up with: Kaelyn Long DO [Primary Care Provider] - Patient Disposition: Xfer SNF Rehab Potential: Good I certify that the patient requires SNF services: Yes Overall status at discharge: patient is progressing back to baseline Discharge Orders: Discharge Order (Routine); Ordered 03/17/22 Ordered By: Chet DE LUNA VTE Deep Vein Thrombosis/Pulmonary Embolism Present on Admission: No
[2022-03-17] MEDS: traMADol 50 MG TABLET PO PRN (10:27)
[2022-03-17] MEDS: LIDOCAINE PATCH TOPICAL SCH (10:28)
[2022-03-17] MEDS: IBUPROFEN 600 MG TABLET PO PRN (12:59)
[2022-03-17] MEDS ORDERED: WARFARIN 3 MG TABLET PO ONE (14:00)
[2022-03-27] MEDS ORDERED: CYANOCOBALAMIN 1,000 MCG/ML VIAL IM SCH (09:00)
== END 2022-03-17 13:10 | DRG 948 ==
LOC: ED 10:08 → MEDSUR 10:08
PROVIDERS: ADMIT Internal Medicine; ATTEND Internal Medicine